=== PATIENT | male | born 1945 | race Caucasian/White ===

== ENCOUNTER → 2017-03-09 | Outpatient (CLI) | payer MEDICARE ==
--- NOTE | 2017-03-09 12:05 | US ---
EXAMINATION TYPE: US abdomen complete DATE OF EXAM: 03/09/2017 11:15 AM COMPARISON: US CLINICAL HISTORY: Inflammatory liver disease, unspecified K75.9. Elevated LFT's EXAM MEASUREMENTS: Liver Length: 15.6 cm Gallbladder Wall: 0.3 cm CBD: 0.6 cm Spleen: 10.8 cm Right Kidney: 9.9 x 5.3 x 5.9 cm Left Kidney: 10.6 x 5.9 x 5.2 cm Pancreas: obscured by overlying midline bowel gas Liver: slightly course echogenicity, scanned intercostally, limited by rib shadowing Gallbladder: appears hydropic measuring 5.9cm in transverse, low level echoes within dependent porti on Evidence for sonographic Donato's sign: no CBD: visualized portions wnl, limited by overlying bowel gas Spleen: visualized portions wnl, limited by rib shadowing and overlying bowel gas Right Kidney: wnl Left Kidney: visualized portions wnl, limited by rib shadowing and overlying bowel gas Upper IVC: wnl Abd Aorta: visualized portions wnl, proximal portion obscured by overlying midline gas IMPRESSION: 1. Exam is limited due to bowel gas and inability scan due to patient body habitus. 2. No suspicious acute changes. 3. Some mild debris may be within the gallbladder.
== END | disposition home or self-care (01) ==
LOC: RADUSWWP 10:30
PROVIDERS: ATTEND Family Medicine
DX: K75.9 Inflammatory liver disease, unspecified (principal)
CPT/HCPCS: 76700

== ENCOUNTER → 2017-03-13 | Outpatient (CLI) | payer MEDICARE ==
[2017-03-13 09:44] LABS: Anion Gap 8 mmol/L; Blood Urea Nitrogen 15 mg/dL (9-20); Calcium 8.5 mg/dL (8.4-10.2); Carbon Dioxide 22 mmol/L (22-30); Chloride 107 mmol/L (98-107); Glucose 112 mg/dL (74-99); Magnesium 1.9 mg/dL (1.6-2.3); Non-African American GFR(MDRD) >60 (>60 ml/min/1.73 sqM); Potassium 4.7 mmol/L (3.5-5.1); Sodium 137 mmol/L (137-145)
== END | disposition home or self-care (01) ==
LOC: LABWHC1 08:28
PROVIDERS: ATTEND Internal Medicine Clinical Cardiac Electrophysiology
DX: I48.1 Persistent atrial fibrillation (principal)
CPT/HCPCS: 36415; 80048; 83735

== ENCOUNTER 2022-06-28 08:34 | Inpatient (IN) | payer MEDICARE ==
[~2022-06-28 08:34] MED LIST: ALPRAZolam 0.25 MG TAB PO PRN; ALPRAZolam 0.5 MG TAB PO PRN; ASPIRIN 325 MG TAB PO STA; ATORVASTATIN 80 MG TAB PO STA; HEPARIN SODIUM,PORCINE 10,000 UNIT in SODIUM CHLORIDE 0.9% 1,000 ML IRRIGATION PRN; HEPARIN SODIUM,PORCINE 2,500 UNIT in SODIUM CHLORIDE 0.9% 250 ML IRRIGATION PRN; NITROGLYCERIN SL TABS 0.4 MG TAB SUBLINGUAL PRN
[2022-06-28] MEDS: SODIUM CHLORIDE 0.9% 1,000 ML in EMPTY BAG 1 BAG IV SCH ×3 (09:40→16:09)
[2022-06-28 10:17] LABS: Basophils # (A) 0.1 k/uL (0-0.2); Basophils % (A) 1 %; Eosinophils # (A) 0.2 k/uL (0-0.7); Eosinophils % (A) 2 %; HCT 48.1 % (39.0-53.0); HGB 15.6 gm/dL (13.0-17.5); Lymphocytes # (A) 2.8 k/uL (1.0-4.8); Lymphocytes % (A) 27 %; MCH 30.6 pg (25.0-35.0); MCHC 32.4 g/dL (31.0-37.0); MCV 94.3 fL (80.0-100.0); Monocytes # (A) 0.9 k/uL (0-1.0); Monocytes % (A) 9 %; Neutrophils # (A) 6.2 k/uL (1.3-7.7); Neutrophils % (A) 60 %; Platelet Count 210 k/uL (150-450); RDW 13.6 % (11.5-15.5); WBC 10.3 k/uL (3.8-10.6)
[2022-06-28 10:29] LABS: INR 2.9 (<1.2); Prothrombin Time 28.8 sec (9.0-12.0)
[2022-06-28 10:30] LABS: Calcium 9.3 mg/dL (8.4-10.2)
[2022-06-28] MEDS ORDERED: MIDAZOLAM 2 MG/2 ML VIAL IVP ONE (10:46)
[2022-06-28] MEDS ORDERED: LIDOCAINE 1% INJ 10MG/ML (30 ML VIAL-PF) SQ ONE ×4 (10:51→15:11)
[2022-06-28] MEDS ORDERED: VERAPAMIL SYRINGE (5 MG/10 ML) INTRAARTER ONE (10:55)
[2022-06-28] MEDS ORDERED: PHYTONADIONE 2.5 MG in SODIUM CHLORIDE 0.9% 50 ML IVPB STA (11:00)
[2022-06-28] MEDS ORDERED: HEPARIN SODIUM 1,000 UN/ML (10ML VL) IVP ONE (11:11)
[2022-06-28] MEDS ORDERED: IOPAMIDOL-370 100ML BTL INJ ONE ×3 (11:25→15:52)
[2022-06-28] MEDS ORDERED: HYDROmorphone 0.5 MG/0.5 ML SYRINGE IVP ONE ×3 (11:33→15:08)
[2022-06-28] MEDS ORDERED: IOPAMIDOL-370 125ML BTL INJ ONE ×2 (11:51→12:02)
[2022-06-28] MEDS ORDERED: CLOPIDOGREL 75 MG TAB PO ONE (11:57)
[2022-06-28] MEDS ORDERED: NITROGLYCERIN 1000MCG/10ML SYRINGE INTRACORON ONE ×2 (12:00→15:39)
--- NOTE | 2022-06-28 12:48 | P.CARDCATH ---
Operative Findings: Date of Service 06/28/2022 Cardiac catheterization and PTCA report Indication for procedure this is a 76-year-old gentleman with a known history of chronic persistent atrial fibrillation status post previous ablation. He has known CAD with prior PCI of LAD circumflex and RCA the last one being in 2011. Last From 2014 did not show any significant obstructive disease. Recently is having exertional chest pain and shortness of breath with a positive stress test in the anteroapical reversible defect with a fixed component. He was advised to cardiac cath and brought in for the procedure electively after due discussion regarding risks benefits and options. He was advised to cardiac cath possible PCI. Procedure #1 coronary angiography #2 PTCA and stenting of proximal and mid LAD with 3 drug-eluting stents Performed by: Dr. Simone Molina Moderate conscious sedation time was 85 minutes. Patient was administered Versed and Dilaudid oxygen saturation hemodynamics and EKG were monitored closely Clinical Information 76-year-old gentleman with history of multivessel PCI including LAD circumflex and RCA and also chronic persistent A. fib hypertension hyperlipidemia has been having symptoms of exertional shortness of breath and chest tightness with a positive stress test with a reversible defect in the anteroapical wall with a fixed component. Advised cardiac cath and PTCA after due discussion regarding risks benefits and options. Procedure details: Under strict aseptic precautions and local anesthesia I gained access from the right radial approach using a micropuncture needle technique. Using it 3.5 (4.0 right Marquez catheters I performed coronary angiography. I did not check LV pressures. I noted that RCA was widely patent but there was significant disease in the circumflex and more so in the LAD in the entire proximal and mid segment. The stented area was patent but before and after the stented area sun'aq is disease up to 80%. I performed intervention of the LAD as well with 3 drug-eluting stents with excellent result. Patient on the procedure well without complications. LV pressures are not checked Coronary angiography findings: Right coronary artery: Large dominant vessel stented in the midportion widely patent with good flow bifurcates into PDA and PLV has minor irregularities. No significant disease in the dominant RCA Left main coronary artery: Widely patent left main that bifurcates into LAD and circumflex Left anterior descending coronary artery: This vessel was previously stented in the midportion. Proximally there is a 40% narrowing then in the midsection is 80% narrowing with areas of calcification in between a small diagonal branch comes off just after the lesion. There are several septal branches, which have some disease in them. In the distal portion there is another 50% narrowing and then the caliber improves and the vessel runs distally. This appears to be the culprit lesion with a mean area of narrowing of up to 80% in a heavily calcified segment Circumflex coronary artery: This is a nondominant vessel that gives off a good- sized obtuse marginal. Proximal circumflex is a 50-60% and circumflex of 80% lesion the circumflex marginal had 80% lesion in the continuation of circumflex in the AV groove is somewhat small. The narrowing in the circumflex marginal is located just before the previous stent. The stented segment is patent Recommendations: I advised PCI of LAD and we will stage the circumflex intervention later on explained to the patient the option of surgery but he was insistent on proceeding with percutaneous approach. PCI procedure details: I used XB LAD 3.5 guide catheter and a whisper wire. Predilatation was performed with a 3.0 caliber 15 mm long NC trek balloon. There was a small intrinsic dissection that extended to the diagonal branch and also somewhat proximally. I deployed a 2.75 caliber 15 mm stent after looking with a 3.0 stent I felt it may be oversized. After deployment of the 2.75 caliber 15 mm stent the flow in the LAD was excellent but there was a sluggish flow in the diagonal branch with some chest pain but no EKG changes. I then noted that the proximal LAD prior to the stented segment was also diseased almost up to the ostium. I stented the proximal LAD with 2 stents one was a 3.0 caliber 15 mm Xience and proximal to it at the ostium with a 3.25 caliber 12 mm signs stent. Excellent antegrade result was achieved. Patient's chest pain improved a lot the flow in the diagonal branch was sluggish but was gradually returning. He was hemodynamically stable no EKG changes with significant improvement in chest pain. Details of the procedure were discussed with the patient I also spoke to his friend Ulices by phone and also to the neighbor who brought him here today. Patient will be discharged tomorrow. He received 600 mg of Plavix. Unfortunately INR was 2.9 and therefore I only gave him 2000 units of heparin. We will start him on Eliquis after the PT INR comes down. He will go home on aspirin and Plavix and I will see him this Sunday. Excellent angiographic result was achieved without complication. He will go home on aspirin and Plavix. Coumadin will be held and I will resume Eliquis that I see him in the office. He will also be on digoxin and beta shawn for rate control which has helped him well. He is also so on a was atorvastatin which I will change to Lipitor 80 mg daily. Discussed with the patient and his friend and also neighbor was here. Equipment used Description Result
[2022-06-28] MEDS ORDERED: HYDROmorphone 0.5 MG/0.5 ML SYRINGE IVP PRN ×2 (13:15→16:56)
[2022-06-28] MEDS ORDERED: SODIUM CHLORIDE 0.9% 1,000 ML IV ONE (15:00)
[2022-06-28] MEDS ORDERED: TIROFIBAN BOLUS 12.5MG/250 ML BAG IV ONE (15:16)
[2022-06-28] MEDS ORDERED: TIROFIBAN 12.5MG-250ML NS 250 ML IV ONE (15:17)
[2022-06-28] MEDS ORDERED: HEPARIN SODIUM 1,000 UN/ML (10ML VL) IV ONE (15:21)
[2022-06-28] MEDS ORDERED: niCARdipine Syringe (1,000 mcg/10 mL) INTRACORON ONE (15:32)
[2022-06-28] MEDS: SODIUM CHLORIDE 0.9% 1,000 ML IV SCH (16:10)
[2022-06-28] MEDS ORDERED: TIROFIBAN 12.5MG-250ML NS 250 ML IV SCH (16:15)
[2022-06-28 16:16] LABS: Glucose,Whole Blood 163 mg/dL (70-110)
[2022-06-28] MEDS: MAGNESIUM OXIDE 400 MG TAB PO SCH (16:58)
[2022-06-28] MEDS ORDERED: METOPROLOL TARTRATE 50 MG TAB PO SCH (21:00)
[2022-06-28] MEDS: ONDANSETRON 4 MG/2 ML VIAL IVP PRN (21:57)
[2022-06-29] MEDS: ONDANSETRON 4 MG/2 ML VIAL IVP PRN ×3 (03:01→20:50)
[2022-06-29] MEDS ORDERED: MAG HYDROX/AL HYDROX/SIMETH 30 ML, HYOSCYAMINE ELIXIR 10 ML, LIDOCAINE VISCOUS 2% 10 ML PO ONE ×3 (03:32)
[2022-06-29] MEDS: SODIUM CHLORIDE 0.9% 1,000 ML IV SCH (03:36)
[2022-06-29] MEDS: LEVOTHYROXINE 25 MCG TAB PO SCH (06:02)
[2022-06-29 06:23] LABS: Basophils % (A) 0 %; Eosinophils # (A) 0.1 k/uL (0-0.7); Eosinophils % (A) 0 %; HCT 50.8 % (39.0-53.0); HGB 15.6 gm/dL (13.0-17.5); Lymphocytes # (A) 1.6 k/uL (1.0-4.8); Lymphocytes % (A) 10 %; MCH 29.7 pg (25.0-35.0); MCHC 30.7 g/dL (31.0-37.0); MCV 96.6 fL (80.0-100.0); Mean Platelet Volume 8.5; Monocytes # (A) 1.3 k/uL (0-1.0); Monocytes % (A) 8 %; Neutrophils # (A) 13.3 k/uL (1.3-7.7); Neutrophils % (A) 81 %; Platelet Count 244 k/uL (150-450); RBC 5.25 m/uL (4.30-5.90); RDW 13.7 % (11.5-15.5); WBC 16.4 k/uL (3.8-10.6)
[2022-06-29 06:43] LABS: African American GFR (CKD) >90 (>60 ml/min/1.73 sqM); Anion Gap 13 mmol/L; Blood Urea Nitrogen 22 mg/dL (9-20); Calcium 8.1 mg/dL (8.4-10.2); Carbon Dioxide 20 mmol/L (22-30); Chloride 100 mmol/L (98-107); Glucose 158 mg/dL (74-99); Non-African American GFR(CKD) 82 (>60 ml/min/1.73 sqM); Sodium 133 mmol/L (137-145)
[2022-06-29 06:44] LABS: Potassium 5.6 mmol/L (3.5-5.1)
[2022-06-29] MEDS ORDERED: METOCLOPRAMIDE 5 MG/ML 2 ML VIAL IVP STA (06:51)
--- NOTE | 2022-06-29 07:17 | P.CARDCATH ---
Operative Findings: Clinical Information: This is a 76-year-old gentleman with persistent A. fib hypertension hyperlipidemia CAD with prior multivessel PCI. I performed PTCA and stenting of proximal LAD earlier in the day. Patient had a mild dissection when I initially dilated with a balloon and then this was tacked up with 3 stents and he was sent to the room. Subsequently he developed sudden chest pain with anterior ST elevation was brought back to the microbiological laboratory technician for urgent cardiac catheter with the thought that he may have had some abrupt reclosure of the vessel LAD and on any acute in-stent thrombosis. Patient's INR was 2.9, I therefore gave him only a small dose of intravenous heparin with ACT of 175 and 600 mg of Plavix. Patient was brought to the Network Programmer expeditiously for the procedure. I advised to cardiac cath and possible PCI of LAD. Procedure: Urgent PCI of mid LAD which was totally occluded performed in the setting of ST elevation with a acute abrupt reclosure following PCI about 2-3 hours ago. Date of service: 06/28/2022 Moderate conscious sedation time: Patient was administered Versed and Dilaudid. His moderate conscious sedation time was 34 minutes. Oxygen saturation hemodynamics and EKG were monitored closely. Guide Catheter: STD left BETHANIE 6 fr [Procedure note: Under strict aseptic precautions and local anesthesia a 6- Faroese introducerin the right femoral artery. I used a long sheath because of tortuosity. A standard left Bethanie guide catheter of 6-Faroese caliber was used to cannulate the left coronary artery. Initial injection revealed in the vessel was totally occluded at the site of the second stent. I gave 5000 units of heparin and also started him on Aggrastat drip. I used a run through wire to cross the lesion and dilated the total occlusion with a 3.0 caliber 15 mm long trek balloon. I noted that there was a area of stenosis just beyond the distal stent. I therefore deployed in the additional new 2.75 caliber 15 mm long Xience stent telescoping to the distal stent. This improved his symptoms remarkably however he still had ST elevation in the anterior leads. I then used a 3.0 NC trek balloon and dilated the entire stented segment at 12-13's. Excellent angiography result was achieved. There was a diagonal branch that came off which had a sluggish flow when I finished the cardiac cath and PCI earlier in the day and this vessel was now totally occluded suggesting he may have an MT in the diagonal distribution. Patient was hemodynamically stable ch est pain free with persistent anterior ST elevation. He was sent to the ICU in a stable condition with the sheath sutured in and TR band in place. He will be on dual antiplatelet therapy with aspirin and Plavix uninterrupted for the next 12 months. Wire: Run through wire Balloon: Initially a 3.0 x 15 trek balloon and subsequently a 3.0 x 15 NC trek balloon Stent: 2.75 caliber with 12 mm long Xience stent Recommendations: Advised dual antiplatelet therapy aspirin and Plavix for one year unless some contraindication develops down the road. Discussed with patient and son Gurmeet( by phone) regarding initial PCI, abrupt reclosure and details of the procedure and recommendations.
--- NOTE | 2022-06-29 07:26 | P.PCN ---
Operative Findings: HPI: This patient underwent elective PCI of proximal LAD yesterday in the morning around 10:30, he had significant disease in the LAD and obtuse minor branch of circumflex but LAD was area where there was ischemia on the stress test. I performed stenting of this vessel with the dissection that required an additional stent. Around 2:30 PM he developed chest pain with ST elevation in the anterior leads and I took him back to the crime lab analyst and LAD was 100% occluded, additional stent was placed in the entire area was dilated with a 3.0 NC trek balloon. Post procedure course from this standpoint was uneventful. His sheath has been pulled his right groin is clean and dry. His right radial site is clean and dry with a good pulse. He developed nausea throughout the night requiring Zofran. This morning is hemodynamically stable. His EKG reveals atrial fib controlled rate with a QS pattern no ST elevation. The ST segment elevation has resolved completely. His hemoglobin is normal but actually slightly high but the sample was hemolyzed of renal function is normal. I am recommending that we will place him on KVO IV fluids check a PT/INR troponin level obtain echocardiogram today and increase activity have him sit in a chair and drink some Vernors and one-time dose of Reglan 5 mg for his nausea. I discussed this at length with the patient and explained to him the details of what happened yesterday. He is hard of hearing but he has acknowledged hearing and understanding everything ice explained.. PHYSICIAL EXAM: Vital signs stable no JVD S1-S2 with a short systolic murmur at the base irregularity and rhythm noted lungs are clear no rales or rhonchi abdomen is soft right groin area is clean and dry with a palpable pulses. Trace edema bilaterally. Central nervous system is normal. IMPRESSION: 1. 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 . 2. Chronic persistent atrial fibrillation. 3. Benign hypertension. 4. Hypercholesterolemia. 5. . RECOMMENDATIONS: Place him on KVO IV fluids, and echocardiogram, check a p ercussion level repeat study in view of earlier hemolytic blood draw, troponin level and a PT/INR. He will be up in the chair and gradual increase in activity. Discussed my thoughts in detail with the patient.
--- NOTE | 2022-06-29 07:29 | P.PN ---
Progress Note - Text HPI: []. HPI: This patient underwent elective PCI of proximal LAD yesterday in the morning around 10:30, he had significant disease in the LAD and obtuse minor branch of circumflex but LAD was area where there was ischemia on the stress test. I performed stenting of this vessel with the dissection that required an additional stent. Around 2:30 PM he developed chest pain with ST elevation in the anterior leads and I took him back to the experimental machining lab manager and LAD was 100% occluded, additional stent was placed in the entire area was dilated with a 3.0 NC trek balloon. Post procedure course from this standpoint was uneventful. His sheath has been pulled his right groin is clean and dry. His right radial site is clean and dry with a good pulse. He developed nausea throughout the night requiring Zofran. This morning is hemodynamically stable. His EKG reveals atrial fib controlled rate with a QS pattern no ST elevation. The ST segment elevation has resolved completely. His hemoglobin is normal but actually slightly high but the sample was hemolyzed of renal function is normal. I am recommending that we will place him on KVO IV fluids check a PT/INR troponin level obtain echocardiogram today and increase activity have him sit in a chair and drink some Vernors and one-time dose of Reglan 5 mg for his nausea. I discussed this at length with the patient and explained to him the details of what happened yesterday. He is hard of hearing but he has acknowledged hearing and understanding everything ice explained.. PHYSICIAL EXAM: Vital signs stable no JVD S1-S2 with a short systolic murmur at the base irregularity and rhythm noted lungs are clear no rales or rhonchi abdomen is soft right groin area is clean and dry with a palpable pulses. Trace edema bilaterally. Central nervous system is normal. IMPRESSION: 1. [ Periprocedural ID following abrupt reclosure after initial PCI of LAD underwent subsequent PCI with additional stented doing well. . 2. Chronic persistent atrial fibrillation. 3. Benign hypertension. 4. Hypercholesterolemia. 5. . RECOMMENDATIONS: Place him on KVO IV fluids, and echocardiogram, check a percussion level repeat study in view of earlier hemolytic blood draw, troponin level and a PT/INR. He will be up in the chair and gradual increase in activity. Discussed my thoughts in detail with the patient.
[2022-06-29 08:04] LABS: INR 1.2 (<1.2); Prothrombin Time 12.7 sec (9.0-12.0)
[2022-06-29] MEDS: CLOPIDOGREL 75 MG TAB PO SCH (08:32)
[2022-06-29] MEDS: allopurinoL 100 MG TAB PO SCH (08:33)
[2022-06-29] MEDS: SODIUM CHLORIDE 0.9% 500 ML 500 ML IV SCH (08:33)
[2022-06-29] MEDS ORDERED: DIGOXIN 125 MCG TAB PO SCH (09:00)
[2022-06-29] MEDS ORDERED: METOPROLOL TARTRATE 50 MG TAB PO SCH (09:00)
[2022-06-29] MEDS ORDERED: ASPIRIN 81 MG PO SCH (09:00)
--- NOTE | 2022-06-29 10:44 | CA ---
Transthoracic Echo Report Name: Shawn Watkins Age: 76 Gender: M : 1945 Exam Date: 06/29/2022 07:55 Exam Location: [place] [facility] Ht (in): 68 Wt (lb): 220 Ordering Physician: Ashely Molina MD ([id number]) Attending/Referring Phys: Edge Trimmer Mechanic Sue Gregorio RDCS Procedure CPT: Indications: LV function and wall motion Cardiac Hx: Technical Quality: Fair Contrast 1: Lumason Total Dose (mL): 4 Contrast 2: Total Dose (mL): MEASUREMENTS (Male / Female) Normal Values 2D ECHO LV Diastolic Diameter PLAX 4.5 cm 4.2 - 5.9 / 3.9 - 5.3 cm LV Systolic Diameter PLAX 3.7 cm IVS Diastolic Thickness 1.2 cm 0.6 - 1.0 / 0.6 - 0.9 cm LVPW Diastolic Thickness 1.3 cm 0.6 - 1.0 / 0.6 - 0.9 cm LV Relative Wall Thickness 0.6 RV Internal Dim ED PLAX 3.2 cm LVOT Diameter 2.0 cm LA Systolic Diameter LX 3.2 cm 3.0 - 4.0 / 2.7 - 3.8 cm LA Volume 57.0 cm??? 18 - 58 / 22 - 52 cm??? M-MODE Aortic Root Diameter MM 3.6 cm MV E Point Septal Separation 1.8 cm AV Cusp Separation MM 1.7 cm DOPPLER AV Peak Velocity 228.1 cm/s AV Peak Gradient 20.8 mmHg AV Mean Velocity 149.8 cm/s AV Mean Gradient 10.6 mmHg AV Velocity Time Integral 42.5 cm MV Area PHT 4.6 cm??? MV Deceleration Time 204.3 ms TR Peak Velocity 206.9 cm/s TR Peak Gradient 17.1 mmHg Right Ventricular Systolic Press 22.1 mmHg FINDINGS Left Ventricle Left ventricular ejection fraction is estimated at 25-30 %. Left ventricular cavity size normal. Mildly increased septal wall thickness. Apical septum inferior and anterior lee hypokinesis Right Ventricle Normal right ventricular size and function. Right ventricular systolic pressure within normal limits. Right Atrium Normal right atrial size. Left Atrium Normal left atrial size. No evidence for an atrial septal defect. Mitral Valve Mitral valve thickened. Trace to mild mitral regurgitation. Aortic Valve Focal thickening of the aortic valve cusps. Mild aortic stenosis with a peak gradient of 21 mmHg and a mean gradient of 11 mmHg. Tricuspid Valve Mild tricuspid regurgitation. Pulmonic Valve Trace pulmonic regurgitation. Pericardium Normal pericardium. No pericardial effusion. Aorta Normal size aortic root and proximal ascending aorta. CONCLUSIONS Left ventricle is of normal size with mild concentric LVH with severe hypokinesia involving the anteroapical septal and also inferoapical portion of the left ventricle suggestive ischemic cardiomyopathy but in the current clinical setting may have significant stunning as well. Mild aortic sclerosis without significant gradient no pulmonary hypertension. No pericardial effusion Previewed by: Dr. Ashely Molina MD (Electronically Signed) Final Date: 29 June 2022 10:43
[2022-06-29] MEDS ORDERED: FUROSEMIDE 10 MG/ML 2 ML VIAL IV STA ×2 (10:53→20:24)
[2022-06-29] MEDS: METOPROLOL TARTRATE 50 MG TAB PO SCH (18:18)
[2022-06-29] MEDS ORDERED: FUROSEMIDE 10 MG/ML 4 ML VIAL ONE (20:14)
[2022-06-29] MEDS ORDERED: IPRATROPIUM-ALBUTEROL 3 ML NEB INHALATION PRN (20:23)
[2022-06-29 20:33] LABS: ABG Base Excess 2.1 mmol/L; ABG HCO3 27 mmol/L (21-25); ABG Hematocrit 51 % (34.0-46.0); ABG Oxygen Saturation 90.1 % (94-97); ABG PCO2 40 mmHg (35-45); ABG PH 7.43 (7.35-7.45); ABG TCO2 28 mmol/L (19-24); Allen Test Performed? Yes
[2022-06-29 20:36] LABS: ABG PO2 59 mmHg (83-108)
[2022-06-29] MEDS ORDERED: HEPARIN SODIUM,PORCINE/PF 5,000 UNIT/0.5 ML SYRINGE SQ SCH (21:00)
--- NOTE | 2022-06-29 22:11 | XR ---
EXAMINATION TYPE: XR chest 1V portable DATE OF EXAM: 06/29/2022 COMPARISON: None HISTORY: Short of breath TECHNIQUE: FINDINGS: There is pulmonary airspace edema in the left upper lobe. There is mild edema also in the r ight perihilar region. Costophrenic angles are clear. IMPRESSION: There is some bilateral perihilar pulmonary edema that is worse in the left upper lobe. This could be acute pneumonia or acute heart failure.
[2022-06-29] MEDS: COLCHICINE 0.6 MG EACH PO SCH (22:54)
[2022-06-29] MEDS: LOSARTAN 25 MG TAB PO SCH (22:55)
[2022-06-29] MEDS: APIXABAN 5 MG TAB PO SCH (23:21)
--- NOTE | 2022-06-30 00:01 | P.HPIM ---
History of Present Illness H&P Date: 06/29/22 Chief Complaint: Chest pain Patient is a 76-year-old male with a known history of persistent atrial fibrillation on anticoagulation with Coumadin and prior history of ablation, history of stent placement and 2012, hypertension, hyperlipidemia, history of IL, hypothyroidism and previous history of smoking initially was brought to the hospital for elective cardiac catheterization. Patient has been having exertional positive stress test with a fixed component. Patient underwent elective PCI of proximal LAD at around 10:30 AM. Patient developed chest pain with ST elevation in the anterior leads started around 2:30 PM and patient was emergently taken to cardiac catheterization and was found to have 100% occlusion of the LAD status post stent placement again. Patient was admitted to MICU for further monitoring. Patient is currently remains in atrial fibrillation with elevated heart rate around 115. Denies any complaints of chest pain. No shortness breath. Compl ains of dizziness and lightheaded. No cough or sputum production. No fever no chills. Laboratory test showed WBC 16.4 hemoglobin 14.6 and platelets 244 Sodium 133 potassium 5.6 chloride 100 bicarb is 20 BUN 2020 creatinine 0.9 and troponin 137 and 120 and 79. Echocardiogram showed concentric mild left ventricular hypertrophy with severe hypokinesia involving the anteroseptal and inferolateral apical portion of the left ventricle suggestive ischemic cardiomyopathy and may have significant myoca rdial stunning as well. Patient currently on room air saturating at 92%. Review of Systems Constitutional: Patient denies any fever or chills . no Generalized weakness. Abdomen: Patient denied any nausea or vomiting or abd. pain Cardiovascular: Patient denies any chest pain or short of breath no palpitations. Dizziness and lightheaded. Respiratory: patient denied any cough is from production. No shortness of breath Neurologic: Patient denied any numbness or tingling headache. Musculoskeletal: Patient denies any complaints of joint swelling or deformity. Skin: Negative Psychiatric: Negative Endocrine: No heat or cold intolerance. No recent weight gain. Genitourinary: No dysuria or hematuria. All other 14 point ROS negative except the above Past Medical History Past Medical History: Atrial Fibrillation, Coronary Artery Disease (CAD), Chest Pain / Angina, Heart Failure, GERD/Reflux, Hyperlipidemia, Hypertension, Sam cardial Infarction (non Q-wave), Osteoarthritis (OA), Pneumonia, Thyroid Disorder Additional Past Medical History / Comment(s): 10/04/15 Pt presented to [facility] ER with L sided chest pain and jaw pain which awoke him from sleep. He was also SOB and diaphoretic. He is being admitted with clinical impression of AFib, chest pain and leukocytosis. Other HX: CHF-chronic systolic dysfunction, nonsustained VTach, dilated ascending aorta 37mm, hypothyroidism, chronic GOUT, DIVERTICULOSIS, DUODENAL ULCER 1978, ARTHTITIS, DJD, psoriasis, tinnitis, sinus problems. Last Myocardial Infarction Date:: 2004 History of Any Multi-Drug Resistant Organisms: None Reported Past Surgical History: Ablation, Appendectomy, Heart Catheterization, Heart Catheterization With Stent (4 with stents placed 2 vessels 2004 one-vessel 2005 and one-vessel 2011), Hernia Repair, Orthopedic Surgery, Tonsillectomy Additional Past Surgical History / Comment(s): STENT X4 per pt with last stent placed 2011, STATES CARDIOVERSION X4 -last one 02/09/15, last ccath 12/2014, 12/22/14 cardiac ablation, LT KNEE BURSA REMOVED, LT KNEE ARTHROSCOPY in and , VASECTOMY, HEAD INJURY- RECONSTRUCTIVE EAR SX 1977, R ear scapiotomy 2005, R inguinal hernia repair. Past Anesthesia/Blood Transfusion Reactions: No Reported Reaction Additional Past Anesthesia/Blood Transfusion Reaction / Comment(s): Pt has never received blood. Date of Last Stent Placement:: 2011 Smoking Status: Former smoker - Past Family History Father Family Medical History: Myocardial Infarction (IL) Additional Family Medical History / Comment(s): Father after his 3rd IL at age 59yrs. Mother Family Medical History: No Reported History, Myocardial Infarction (IL) (At age 77) Additional Family Medical History / Comment(s): Mother of an IL at age 77 yrs. Sister(s) Family Medical History: No Reported History Medications and Allergies Home Medications Medication Instructions Recorded Confirmed Type Aspirin 81 mg PO DAILY 12/18/14 06/28/22 History Digoxin [Lanoxin] 125 mcg PO DAILY 12/18/14 06/28/22 History Levothyroxine Sodium [Synthroid] 25 mcg PO DAILY 12/18/14 06/28/22 History Spironolactone 25 mg PO DAILY 12/18/14 06/28/22 History allopurinoL [Allopurinol] 100 mg PO DAILY 12/18/14 06/28/22 History Warfarin Sodium [Coumadin] 5 mg PO DIRECTED 02/04/15 06/28/22 History Magnesium 250 mg PO MOWEFR 10/04/15 06/28/22 History Metoprolol Tartrate [Lopressor] 100 mg PO DAILY 10/04/15 06/28/22 History Meloxicam [Mobic] 7.5 mg PO BID PRN 06/28/22 06/28/22 History Metoprolol Tartrate [Lopressor] 50 mg PO HS 06/28/22 06/28/22 History Rosuvastatin Calcium [Crestor] 5 mg PO HS 06/28/22 06/28/22 History Allergies Allergy/AdvReac Type Severity Reaction Status Date / Time erythromycin base AdvReac Diarrhea Verified 10/04/15 06:14 Physical Exam Vitals: Vital Signs Temp Pulse Resp BP Pulse Ox 06/29/22 15:00 92 28 H 108/74 91 L 06/29/22 14:00 110 H 24 94/63 90 L 06/29/22 13:00 102 H 36 H 104/71 93 L 06/29/22 12:00 98.9 F 103 H 25 H 92/61 94 L 06/29/22 11:00 85 34 H 83/51 92 L 06/29/22 10:00 109 H 20 118/76 93 L 06/29/22 09:00 115 H 26 H 104/60 91 L 06/29/22 08:00 98.3 F 98 23 108/69 94 L 06/29/22 07:00 128 H 35 H 105/77 95 06/29/22 06:45 106 H 27 H 105/77 87 L 06/29/22 06:30 101 H 7 L 116/72 94 L 06/29/22 06:15 97 11 L 116/72 94 L 06/29/22 06:00 98 10 L 102/62 95 06/29/22 05:45 90 24 102/62 96 06/29/22 05:30 101 H 29 H 105/68 97 06/29/22 05:15 103 H 21 96 06/29/22 05:00 93 21 107/68 94 L 06/29/22 04:45 100 19 107/68 94 L 06/29/22 04:30 104 H 22 106/80 96 06/29/22 04:15 112 H 7 L 106/80 88 L 06/29/22 04:00 97.8 F 110 H 20 105/67 96 06/29/22 03:45 108 H 26 H 105/67 91 L 06/29/22 03:30 93 19 106/91 87 L 06/29/22 03:15 101 H 13 92 L 06/29/22 03:00 98 16 104/65 96 06/29/22 02:45 90 17 104/65 97 06/29/22 02:30 89 20 100/75 95 06/29/22 02:15 92 9 L 100/75 96 06/29/22 02:00 80 6 L 108/58 96 06/29/22 01:45 84 20 108/58 95 06/29/22 01:30 97 16 96 06/29/22 01:15 90 17 96 06/29/22 01:00 90 20 97 06/29/22 00:45 107 H 19 110/63 96 06/29/22 00:30 103 H 18 96 06/29/22 00:15 88 16 106/72 96 06/29/22 00:00 98.1 F 104 H 16 117/54 96 06/28/22 23:45 97 18 96 06/28/22 23:30 95 15 122/78 96 06/28/22 23:15 115 H 9 L 91/51 95 06/28/22 23:00 96 17 101/62 97 06/28/22 22:45 107 H 16 101/62 97 06/28/22 22:30 109 H 15 104/60 96 06/28/22 22:15 101 H 15 104/60 96 06/28/22 22:00 86 26 H 102/76 96 06/28/22 21:45 90 10 L 95/72 96 06/28/22 21:30 91 7 L 95 06/28/22 21:15 102 H 19 107/74 95 06/28/22 21:00 90 15 95 06/28/22 20:45 90 17 97 06/28/22 20:30 103 H 18 120/87 96 06/28/22 20:15 103 H 23 95 06/28/22 20:00 97.7 F 102 H 10 L 120/87 97 06/28/22 19:45 89 9 L 120/87 96 06/28/22 19:30 93 10 L 96 06/28/22 19:15 96 18 120/87 96 06/28/22 19:06 96 11 L 120/87 95 06/28/22 19:00 101 H 16 94 L 06/28/22 18:45 114 H 14 95 06/28/22 18:30 95 16 95 06/28/22 18:15 93 19 95 06/28/22 18:00 105 H 15 96 06/28/22 17:45 89 19 95 06/28/22 17:30 111 H 20 94 L 06/28/22 17:15 104 H 20 93 L 06/28/22 17:00 98 17 92 L 06/28/22 16:45 103 H 22 92 L 06/28/22 16:30 104 H 23 120/87 90 L 06/28/22 16:15 97.9 F 99 19 117/84 90 L Intake and Output 06/29/22 06/29/22 06/29/22 06:59 14:59 22:59 Intake Total 597 160 0 Output Total 375 650 Balance 222 -490 0 Intake: IV 597 160 0 KVO 160 0 Sodium Chloride 0.9% 1, 525 000 ml @ 75 mls/hr IV . [id number] MYESHA Rx#:[id number] Tirofiban 12.5MG-250Ml Ns 72 250 ml @ 0.15 MCG/KG/MIN 18.036 mls/hr IV . [id number] MYESHA Rx#:[id number] Output: Urine 375 650 Other: Voiding Method Urinal Urinal # Voids 0 # Bowel Movements 0 0 Weight 100 kg PHYSICAL EXAMINATION: Patient is lying in the bed comfortably, no acute distress, awake alert and oriented.. HEENT: Normocephalic. Neck is supple. Pupils reactive. Nostrils clear. Oral cavity is moist. Neck reveals no JVD, carotid bruits, or thyromegaly. CHEST EXAMINATION: Trachea is central. Symmetrical expansion. Bibasilar diminished sounds. No wheezing.. CARDIAC: Normal S1, S2 with no gallops. No murmurs. Irregularly irregular rhythm. ABDOMEN: Soft. Bowel sounds present. Nontender. No organomegaly. No abdominal bruits. Extremities: reveal no edema. No clubbing or cyanosis Neurologically awake, alert, oriented x3 with well-coordinated movements. No focal deficits noted Skin: No rash or skin lesions. Psychiatric: Coperative. Nonsuicidal, Musculoskeletal: No joint swelling or deformity. Normal range of motion. Results CBC & Chem 7: 06/29/22 05:28 06/29/22 10:03 Labs: Abnormal Lab Results - Last 24 Hours (Table) 06/28/22 06/29/22 06/29/22 Range/Units 16:15 05:28 05:28 WBC 16.4 H (3.8-10.6) k/uL MCHC 30.7 L (31.0-37.0) g/dL Neutrophils # 13.3 H (1.3-7.7) k/uL Monocytes # 1.3 H (0-1.0) k/uL PT (9.0-12.0) sec INR (<1.2) Sodium 133 L (137-145) mmol/L Potassium 5.6 H (3.5-5.1) mmol/L Carbon Dioxide 20 L (22-30) mmol/L BUN 22 H (9-20) mg/dL Glucose 158 H (74-99) mg/dL POC Glucose (mg/dL) 163 H (70-110) mg/dL Calcium 8.1 L (8.4-10.2) mg/dL Troponin I (0.000-0.034) ng/mL 06/29/22 06/29/22 06/29/22 Range/Units 07:16 07:16 10:03 WBC (3.8-10.6) k/uL MCHC (31.0-37.0) g/dL Neutrophils # (1.3-7.7) k/uL Monocytes # (0-1.0) k/uL PT 12.7 H (9.0-12.0) sec INR 1.2 H (<1.2) Sodium (137-145) mmol/L Potassium (3.5-5.1) mmol/L Carbon Dioxide (22-30) mmol/L BUN (9-20) mg/dL Glucose (74-99) mg/dL POC Glucose (mg/dL) (70-110) mg/dL Calcium (8.4-10.2) mg/dL Troponin I 137.000 H* 120.000 H* (0.000-0.034) ng/mL Thrombosis Risk Factor Assmnt - DVT/VTE Prophylaxis DVT/VTE Prophylaxis: Pharmacologic Prophylaxis ordered - Choose All That Apply Each Factor Represents 1 point: Medical pt on bed rest Each Risk Factor Represents 3 Points: Age 75 years or older Thrombosis Risk Factor Assessment Total Risk Factor Score: 4 Thrombosis Risk Factor Assessment Level: Moderate Risk Assessment and Plan Assessment: Periprocedural IL following abrupt reclosure after initially PCI of LAD and underwent subsequent PCI with additional stenting. Chronic persistent atrial fibrillation with RVR. History of cardiac catheterization and stent placement in 2004, 2005 and 2011. Hypertension Hyperlipidemia History IL GERD Hypothyroidism GI and DVT prophylaxis. Patient is on apixaban. Plan: Patient will be current on telemetry monitoring. Continue with Plavix and Eliquis and continue with metoprolol and other home medications. monitor the patient in the MICU. Cardiology is on board. Continue to follow closely. Time with Patient: Greater than 30
[2022-06-30] MEDS ORDERED: FUROSEMIDE 10 MG/ML 2 ML VIAL IV ONE (05:00)
[2022-06-30] MEDS: METOPROLOL TARTRATE 50 MG TAB PO SCH ×2 (05:36→06:03)
[2022-06-30] MEDS: LEVOTHYROXINE 25 MCG TAB PO SCH (05:36)
[2022-06-30 07:01] LABS: Basophils # (A) 0.1 k/uL (0-0.2); Basophils % (A) 1 %; Calcium 8.3 mg/dL (8.4-10.2); Eosinophils % (A) 0 %; HCT 46.9 % (39.0-53.0); HGB 15.4 gm/dL (13.0-17.5); Lymphocytes # (A) 1.8 k/uL (1.0-4.8); Lymphocytes % (A) 9 %; MCH 30.8 pg (25.0-35.0); MCHC 32.8 g/dL (31.0-37.0); Mean Platelet Volume 8.7; Monocytes % (A) 10 %; Neutrophils # (A) 15.3 k/uL (1.3-7.7); Neutrophils % (A) 79 %; Platelet Count 149 k/uL (150-450); Potassium 4.4 mmol/L (3.5-5.1); RBC 4.99 m/uL (4.30-5.90); RDW 13.7 % (11.5-15.5); WBC 19.5 k/uL (3.8-10.6)
[2022-06-30] MEDS ORDERED: FUROSEMIDE 10 MG/ML 4 ML VIAL IV STA (08:02)
[2022-06-30] MEDS: SODIUM CHLORIDE 0.9% 500 ML 500 ML IV SCH (08:12)
[2022-06-30] MEDS: SPIRONOLACTONE 25 MG TAB PO SCH (08:22)
[2022-06-30] MEDS: CLOPIDOGREL 75 MG TAB PO SCH (08:22)
[2022-06-30] MEDS: COLCHICINE 0.6 MG EACH PO SCH (08:22)
[2022-06-30] MEDS: APIXABAN 5 MG TAB PO SCH ×2 (08:22→20:45)
[2022-06-30] MEDS: allopurinoL 100 MG TAB PO SCH (08:22)
--- NOTE | 2022-06-30 08:24 | XR ---
EXAMINATION TYPE: XR chest 1V portable DATE OF EXAM: 06/30/2022 COMPARISON: 06/29/2022 HISTORY: Shortness of breath TECHNIQUE: Single frontal view of the chest is obtained. FINDINGS: Patchy bilateral perihilar infiltrate. Tiny right pleural effusion. Heart size stable. Hyp ertrophic and degenerative changes spine. No pneumothorax. IMPRESSION: Bilateral areas of patchy infiltrate correlate for pneumonia or atypical pneumonia. Pulm onary edema also the differential diagnosis.
[2022-06-30] MEDS ORDERED: FUROSEMIDE 10 MG/ML 2 ML VIAL IV SCH ×2 (09:30→09:45)
[2022-06-30] MEDS ORDERED: AMIODARONE 200 MG TAB PO SCH (12:04)
--- NOTE | 2022-06-30 12:25 | P.PN ---
Subjective Progress Note Date: 06/30/22 Patient seen today resting comfortably in bed no signs of acute distress. He denies chest pain or increased shortness of breath but states he felt better. Patient has A. fib RVR on the monitor he has a history of A. fib and continues on Eliquis. Heart rate is 120s to 150s. Will start amiodarone. Last night patient had an episode of respiratory distress, his chest x-ray showed bilateral pulmonary edema worsened in the left upper lobe correlated for acute pneumonia or acute heart failure. Patient has received a total of the 100mg of IV Lasix between last night and today. BUN is 25 creatinine is 1. Chest x-ray still correlates for with bilateral patchy infiltrates. Will continue with IV Lasix. Patient's echocardiogram shows a severely decreased LV function with an EF of 25-30%. Patient is on 10 L nasal cannula Objective - Vital Signs Vital signs: Vital Signs Temp 98.5 F 06/30/22 08:00 Pulse 137 H 06/30/22 09:20 Resp 32 H 06/30/22 09:20 BP 102/69 06/30/22 09:20 Pulse Ox 93 L 06/30/22 09:20 FiO2 Intake & Output 06/29/22 06/30/22 06/30/22 18:59 06:59 18:59 Intake Total 460 50 Output Total 1000 680 700 Balance -540 -630 -700 Weight 35.2 kg Intake: IV 160 0 KVO 160 0 Oral 300 50 Output: Urine 1000 680 700 Other: Voiding Method Urinal Urinal Urinal # Bowel Movements 0 ABP, PAP, CO, CI - Last Documented Arterial Blood Pressure 259/259 - Exam PHYSICAL EXAM: VITAL SIGNS: Reviewed. GENERAL: Well-developed in no acute distress. HEENT: Head is normocephalic. Pupils are equal, round. Sclerae anicteric. Mucous membranes of the mouth are moist. NECK: Supple. No JVD or thyromegaly RESPIRATORY: Respirations even and unlabored. Lungs diminished to auscultation bilaterally. CARDIO: Regular rate and rhythm. S1 and S2 heard. No murmur or gallops. EXTREMITIES: Normal range of motion. No clubbing or cyanosis. Peripheral pulses intact. Negative for bilateral lower extremity edema NEURO: Orientated to person, time, mood is appropriate - Labs CBC & Chem 7: 06/30/22 05:34 06/30/22 05:34 Labs: Abnormal Lab Results - Last 24 Hours (Table) 06/29/22 06/29/22 06/29/22 Range/Units 10:03 17:58 20:28 WBC (3.8-10.6) k/uL Plt Count (150-450) k/uL Neutrophils # (1.3-7.7) k/uL Monocytes # (0-1.0) k/uL ABG pO2 59 L* (83-108) mmHg ABG HCO3 27 H (21-25) mmol/L ABG Total CO2 28 H (19-24) mmol/L ABG O2 Saturation 90.1 L (94-97) % ABG Hematocrit 51 H (34.0-46.0) % Sodium (137-145) mmol/L Chloride (98-107) mmol/L BUN (9-20) mg/dL Glucose (74-99) mg/dL Calcium (8.4-10.2) mg/dL Troponin I 120.000 H* 79.200 H* (0.000-0.034) ng/mL 06/30/22 06/30/22 Range/Units 05:34 05:34 WBC 19.5 H (3.8-10.6) k/uL Plt Count 149 L (150-450) k/uL Neutrophils # 15.3 H (1.3-7.7) k/uL Monocytes # 2.0 H (0-1.0) k/uL ABG pO2 (83-108) mmHg ABG HCO3 (21-25) mmol/L ABG Total CO2 (19-24) mmol/L ABG O2 Saturation (94-97) % ABG Hematocrit (34.0-46.0) % Sodium 134 L (137-145) mmol/L Chloride 97 L (98-107) mmol/L BUN 25 H (9-20) mg/dL Glucose 152 H (74-99) mg/dL Calcium 8.3 L (8.4-10.2) mg/dL Troponin I (0.000-0.034) ng/mL Assessment and Plan Assessment: Coronary artery disease status post angioplasty to LAD ST elevation in the anterior leads secondary to abrupt reclosure of initial PCI of the LAD, underwent sequential PCI with additional stenting Persistent atrial fibrillation Hypertension Hyperlipidemia Plan: Start amiodarone Continue Eliquis for anticoagulation Continue Lasix Continue to monitor kidney function Further recommendations based on clinical course The above impression and plan of care have been discussed and directed by the signing physician. Sade Walsh, nurse practitioner, acting as scribe for signing physician.
--- NOTE | 2022-06-30 13:37 | P.CNPUL ---
History of Present Illness Consult date: 06/30/22 Requesting physician: Evan Awad Reason for consult: dyspnea Chief complaint: Shortness of breath History of present illness: This is a 76-year-old white male with history of chronic atrial fibrillation, previous ablation and previous stent placement in 2011. Patient is also known to have history of hypertension, hypothyroidism, previous CO, patient had a recent positive stress test, this was done for exertional dyspnea. Underwent cardiac catheterization by Dr. ANIL Molina, patient had elective PCI of proximal LAD around 10:30 AM. Postoperatively, in p.m., patient developed chest pain and ST elevation in the anterior leads, patient was taken back emergently to the cardiac Pump Station Operator, and he was found to have on the percent occlusion of the LAD, patient had another stent placement and admitted to the ICU after the stent placement. In the ICU, the patient developed worsening shortness of breath required oxygen at 10 L/m chest x-ray clearly showed evidence of pulmonary edema. Patient was given diuretics overnight, significant improvement noted initially, but this morning his chest x-ray is showing worsening pulmonary edema again, and he is receiving more Lasix this morning. Patient clearly had LV dysfunction with ejection fraction of 25-30%. Very consistent with ischemic cardiomyopathy and LV dysfunction. In addition to this the patient was noted to have atrial fibrillation with RVR, and he will be started on amiodarone as per cardiology. Review of Systems Constitutional: Patient denies fever chills or weight loss or weakness. GI: Denies nausea vomiting abdominal pain melena or hematemesis Cardiovascular: As noted in HPI. Respiratory: Some shortness of breath, no cough, no wheezing, no fever, no chills. Neurologic: No headache no blurred vision dizziness or syncope. Musculoskeletal: Negative. Skin: Negative Psychiatric: Denies any symptoms of active depression or anxiety. Endocrine: Negative. Genitourinary: No dysuria frequency urgency or hematuria. Past Medical History Past Medical History: Atrial Fibrillation, Coronary Artery Disease (CAD), Chest Pain / Angina, Heart Failure, GERD/Reflux, Hyperlipidemia, Hypertension, Myocardial Infarction (non Q-wave), Osteoarthritis (OA), Pneumonia, Thyroid Disorder Additional Past Medical History / Comment(s): 10/04/15 Pt presented to [facility] ER with L sided chest pain and jaw pain which awoke him from sleep. He was also SOB and diaphoretic. He is being admitted with clinical impression of AFib, chest pain and leukocytosis. Other HX: CHF-chronic systolic dysfunction, nonsustained VTach, dilated ascending aorta 37mm, hypothyroidism, chronic GOUT, DIVERTICULOSIS, DUODENAL ULCER 1978, ARTHTITIS, DJD, psoriasis, tinnitis, sinus problems. Last Myocardial Infarction Date:: 2004 History of Any Multi-Drug Resistant Organisms: None Reported Past Surgical History: Ablation, Appendectomy, Heart Catheterization, Heart Catheterization With Stent (4 with stents placed 2 vessels 2004 one-vessel 2005 and one-vessel 2011), Hernia Repair, Orthopedic Surgery, Tonsillectomy Additional Past Surgical History / Comment(s): STENT X4 per pt with last stent placed 2011, [place] CARDIOVERSION X4 -last one 02/09/15, last ccath 12/2014, 12/22/14 cardiac ablation, LT KNEE BURSA REMOVED, LT KNEE ARTHROSCOPY in and , VASECTOMY, HEAD INJURY- RECONSTRUCTIVE EAR SX 1977, R ear scapiotomy 2005, R inguinal hernia repair. Past Anesthesia/Blood Transfusion Reactions: No Reported Reaction Additional Past Anesthesia/Blood Transfusion Reaction / Comment(s): Pt has never received blood. Date of Last Stent Placement:: 2011 Smoking Status: Former smoker - Past Family History Father Family Medical History: Myocardial Infarction (CO) Additional Family Medical History / Comment(s): Father after his 3rd CO at age 59yrs. Mother Family Medical History: No Reported History, Myocardial Infarction (CO) (At age 77) Additional Family Medical History / Comment(s): Mother of an CO at age 77 yrs. Sister(s) Family Medical History: No Reported History Medications and Allergies Home Medications Medication Instructions Recorded Confirmed Type Aspirin 81 mg PO DAILY 12/18/14 06/28/22 History Digoxin [Lanoxin] 125 mcg PO DAILY 12/18/14 06/28/22 History Levothyroxine Sodium [Synthroid] 25 mcg PO DAILY 12/18/14 06/28/22 History Spironolactone 25 mg PO DAILY 12/18/14 06/28/22 History allopurinoL [Allopurinol] 100 mg PO DAILY 12/18/14 06/28/22 History Warfarin Sodium [Coumadin] 5 mg PO DIRECTED 02/04/15 06/28/22 History Magnesium 250 mg PO MOWEFR 10/04/15 06/28/22 History Metoprolol Tartrate [Lopressor] 100 mg PO DAILY 10/04/15 06/28/22 History Meloxicam [Mobic] 7.5 mg PO BID PRN 06/28/22 06/28/22 History Metoprolol Tartrate [Lopressor] 50 mg PO HS 06/28/22 06/28/22 History Rosuvastatin Calcium [Crestor] 5 mg PO HS 06/28/22 06/28/22 History Allergies Allergy/AdvReac Type Severity Reaction Status Date / Time erythromycin base AdvReac Diarrhea Verified 10/04/15 06:14 Physical Exam Vitals: Vital Signs Temp Pulse Resp BP Pulse Ox 06/30/22 12:20 124 H 18 97/56 95 06/30/22 12:00 97.8 F 131 H 20 90/62 95 06/30/22 11:40 140 H 20 98/86 93 L 06/30/22 11:20 125 H 20 90/68 94 L 06/30/22 11:00 140 H 20 95/69 94 L 06/30/22 10:40 154 H 20 97/74 94 L 06/30/22 10:20 151 H 20 88/67 93 L 06/30/22 10:00 135 H 20 85/58 94 L 06/30/22 09:40 142 H 19 96/70 93 L 06/30/22 09:20 137 H 32 H 102/69 93 L 06/30/22 09:00 133 H 24 97/76 93 L 06/30/22 08:40 129 H 29 H 91/28 94 L 06/30/22 08:20 106 H 29 H 81/62 92 L 06/30/22 08:00 98.5 F 124 H 30 H 90/71 91 L 06/30/22 07:40 118 H 30 H 101/68 06/30/22 07:20 130 H 28 H 93 L 06/30/22 07:00 120 H 28 H 95/76 06/30/22 06:40 124 H 29 H 102/85 06/30/22 06:20 135 H 28 H 100/62 93 L 06/30/22 06:00 110 H 14 95/73 94 L 06/30/22 05:40 140 H 30 H 99/46 93 L 06/30/22 05:20 133 H 26 H 94 L 06/30/22 05:00 130 H 24 107/82 95 06/30/22 04:40 118 H 26 H 93/72 95 06/30/22 04:20 137 H 34 H 101/77 95 06/30/22 04:00 118 H 27 H 97/69 94 L 06/30/22 03:40 128 H 25 H 104/76 94 L 06/30/22 03:22 27 H 06/30/22 03:20 115 H 21 101/79 06/30/22 03:00 115 H 31 H 97/63 93 L 06/30/22 02:40 149 H 24 99/69 06/30/22 02:20 130 H 16 105/70 94 L 06/30/22 02:00 120 H 31 H 106/72 94 L 06/30/22 01:40 101 H 28 H 99/78 06/30/22 01:20 135 H 29 H 96/72 96 06/30/22 01:00 105 H 15 101/70 06/30/22 00:40 128 H 28 H 102/77 93 L 06/30/22 00:20 137 H 30 H 115/84 95 06/30/22 00:00 121 H 25 H 106/61 93 L 06/29/22 23:40 101 H 28 H 106/75 93 L 06/29/22 23:33 111 H 17 106/75 93 L 06/29/22 23:25 31 H 06/29/22 23:20 123 H 29 H 105/66 93 L 06/29/22 23:00 104 H 21 117/107 92 L 06/29/22 22:40 140 H 23 102/77 90 L 06/29/22 22:20 122 H 35 H 97/66 92 L 06/29/22 22:00 125 H 33 H 102/74 92 L 06/29/22 21:40 111 H 35 H 95/65 91 L 06/29/22 21:20 104 H 31 H 91 L 06/29/22 21:00 102 H 31 H 91 L 06/29/22 20:51 91 L 06/29/22 20:39 110 H 06/29/22 20:00 98.0 F 116 H 27 H 105/73 89 L 06/29/22 19:00 115 H 31 H 113/74 89 L 06/29/22 18:00 115 H 30 H 98/76 92 L 06/29/22 17:00 120 H 28 H 98/76 91 L 06/29/22 16:00 97.8 F 115 H 27 H 108/74 92 L 06/29/22 15:00 92 28 H 108/74 91 L 06/29/22 14:00 110 H 24 94/63 90 L Intake and Output 06/29/22 06/30/22 06/30/22 22:59 06:59 14:59 Intake Total 300 50 Output Total 097 468 9426 Balance -350 -330 -1450 Intake: IV 0 0 KVO 0 0 Oral 300 50 Output: Urine 226 706 2300 Other: Voiding Method Urinal Urinal Urinal Weight 35.2 kg Physical Exam: Revealed 76-year-old white male in no distress on 10 L nasal cannula Head: Atraumatic, normocephalic. HEENT:[Neck is supple.] [No neck masses.] [No thyromegaly.] [No JVD.] Chest: Symmetrical chest expansion, crackles at the bases, no rhonchi and no wheezes. Cardiac Exam: Tachycardic, irregular irregular rhythm.. [Normal S1 and S2, no S3 gallop, 2/6 systolic murmur thought the precordium Abdomen: [Soft, nontender, no megaly, no rebound, no guarding, normal bowel sounds.] Extremities: [No clubbing, no edema, no cyanosis.] Good pulses bilaterally. Neurological Exam: [No focal neurologic deficit.]Alert oriented 3, no gross focal neurologic deficit Psychiatric: Normal mood affect and normal mental status examination. Skin: No rashes. [place] skeletal: No deformities and no limitation in range of motion. Results - Laboratory Findings CBC and BMP: 06/30/22 05:34 06/30/22 05:34 ABG ABG pH 7.43 (7.35-7.45) 06/29/22 20:28 ABG pCO2 40 mmHg (35-45) 06/29/22 20:28 ABG pO2 59 mmHg (83-108) L* 06/29/22 20:28 ABG O2 Saturation 90.1 % (94-97) L 06/29/22 20:28 PT/INR, D-dimer PT 12.7 sec (9.0-12.0) H 06/29/22 07:16 INR 1.2 (<1.2) H 06/29/22 07:16 Abnormal lab findings: Abnormal Labs 06/28/22 06/28/22 06/28/22 09:30 09:30 16:15 WBC MCHC Plt Count Neutrophils # Monocytes # PT 28.8 H INR 2.9 H ABG pO2 ABG HCO3 ABG Total CO2 ABG O2 Saturation ABG Hematocrit Sodium Potassium Chloride Carbon Dioxide BUN Glucose 122 H POC Glucose (mg/dL) 163 H Calcium Troponin I 06/29/22 06/29/22 06/29/22 05:28 05:28 07:16 WBC 16.4 H MCHC 30.7 L Plt Count Neutrophils # 13.3 H Monocytes # 1.3 H PT INR ABG pO2 ABG HCO3 ABG Total CO2 ABG O2 Saturation ABG Hematocrit Sodium 133 L Potassium 5.6 H Chloride Carbon Dioxide 20 L BUN 22 H Glucose 158 H POC Glucose (mg/dL) Calcium 8.1 L Troponin I 137.000 H* 06/29/22 06/29/22 06/29/22 07:16 10:03 17:58 WBC MCHC Plt Count Neutrophils # Monocytes # PT 12.7 H INR 1.2 H ABG pO2 ABG HCO3 ABG Total CO2 ABG O2 Saturation ABG Hematocrit Sodium Potassium Chloride Carbon Dioxide BUN Glucose POC Glucose (mg/dL) Calcium Troponin I 120.000 H* 79.200 H* 06/29/22 06/30/22 06/30/22 20:28 05:34 05:34 WBC 19.5 H MCHC Plt Count 149 L Neutrophils # 15.3 H Monocytes # 2.0 H PT INR ABG pO2 59 L* ABG HCO3 27 H ABG Total CO2 28 H ABG O2 Saturation 90.1 L ABG Hematocrit 51 H Sodium 134 L Potassium Chloride 97 L Carbon Dioxide BUN 25 H Glucose 152 H POC Glucose (mg/dL) Calcium 8.3 L Troponin I - Diagnostic Findings Chest x-ray: image reviewed (As noted in HPI, chest x-ray is consistent with congestive heart failure) Assessment and Plan Assessment: Impression: Acute hypoxic respiratory failure secondary to acute systolic congestive heart failure, acute pulmonary edema Ischemic cardiomyopathy and LV dysfunction Coronary artery disease with periprocedural CO following abrupt reclosure of LAD stent requiring subsequent evaluation and PCI/additional stenting done Benign essential hypertension Dyslipidemia Hypothyroidism Atrial fibrillation with RVR, another contributing factor to acute congestive heart failure. Recommendation: Continue diuretics, Lasix 40 mg IV push twice a day Continue oxygen and titrate accordingly maintaining O2 saturation above 92% Continue to monitor the ICU Continue eliquis for his atrial fibrillation Agree with amiodarone for atrial fibrillation with RVR Close monitoring of his pulmonary status and use diuretics accordingly. Strict monitoring of I's and O's GI and DVT prophylaxis Continue Plavix, statins, and beta blockers. We will continue to follow. Prognosis is guarded. Time with Patient: Greater than 30
[2022-06-30] MEDS ORDERED: DIGOXIN 250 MCG/ML 2 ML AMP IVP ONE (14:46)
[2022-06-30] MEDS: MAGNESIUM OXIDE 400 MG TAB PO SCH (15:06)
[2022-06-30] MEDS ORDERED: DEXTROSE 5% IN WATER 100 ML with AMIODARONE 150 MG IV ONE (20:39)
[2022-06-30] MEDS: LOSARTAN 25 MG TAB PO SCH (20:45)
[2022-06-30] MEDS ORDERED: AMIODARONE 360 MG in DEXTROSE 5% IN WATER 200 ML IV ONE ×2 (20:50)
[2022-06-30] MEDS ORDERED: FUROSEMIDE 10 MG/ML 4 ML VIAL IV SCH (21:00)
[2022-06-30] MEDS: ONDANSETRON 4 MG/2 ML VIAL IVP PRN (22:11)
[2022-07-01] MEDS: AMIODARONE 450 MG in DEXTROSE 5% IN WATER 250 ML IV SCH ×4 (02:42→17:15)
[2022-07-01] MEDS: LEVOTHYROXINE 25 MCG TAB PO SCH (05:53)
[2022-07-01 06:55] LABS: Basophils # (A) 0.2 k/uL (0-0.2); Basophils % (A) 1 %; Eosinophils # (A) 0.1 k/uL (0-0.7); Eosinophils % (A) 0 %; HCT 45.8 % (39.0-53.0); HGB 14.8 gm/dL (13.0-17.5); Lymphocytes # (A) 1.7 k/uL (1.0-4.8); Lymphocytes % (A) 8 %; MCH 31.4 pg (25.0-35.0); MCHC 32.3 g/dL (31.0-37.0); MCV 97.1 fL (80.0-100.0); Mean Platelet Volume 8.4; Monocytes % (A) 10 %; Neutrophils # (A) 15.9 k/uL (1.3-7.7); Neutrophils % (A) 79 %; Platelet Count 159 k/uL (150-450); RBC 4.72 m/uL (4.30-5.90); RDW 13.5 % (11.5-15.5); WBC 20.2 k/uL (3.8-10.6)
--- NOTE | 2022-07-01 07:21 | XR ---
EXAMINATION TYPE: XR chest 1V portable DATE OF EXAM: 07/01/2022 5:57 AM COMPARISON: Chest radiograph from one day prior. TECHNIQUE: XR chest 1V portable Frontal view of the chest. CLINICAL INDICATION:Male, 76 years old with history of pulmonary edema; FINDINGS: Lungs/Pleura: Improved aeration of the lungs on today's exam. There is no evidence of pleural effusio n, focal consolidation, or pneumothorax. Pulmonary vascularity: Unremarkable. Heart/mediastinum: Cardiomediastinal silhouette is prominent in size. Musculoskeletal: No acute osseous pathology. IMPRESSION: Improved aeration on today's exam. Attention on follow-up imaging.
[2022-07-01] MEDS ORDERED: FUROSEMIDE 10 MG/ML 4 ML VIAL IV SCH ×2 (09:00)
[2022-07-01] MEDS: DIGOXIN 125 MCG TAB PO SCH (09:06)
[2022-07-01] MEDS: APIXABAN 5 MG TAB PO SCH ×2 (09:06→20:11)
[2022-07-01] MEDS: CLOPIDOGREL 75 MG TAB PO SCH (09:07)
[2022-07-01] MEDS: SPIRONOLACTONE 25 MG TAB PO SCH (09:07)
[2022-07-01] MEDS: allopurinoL 100 MG TAB PO SCH (09:09)
[2022-07-01] MEDS: METOPROLOL TARTRATE 50 MG TAB PO SCH ×3 (11:23→20:11)
--- NOTE | 2022-07-01 13:16 | P.PN ---
Subjective Progress Note Date: 07/01/22 Principal diagnosis: Acute hypoxic respiratory failure secondary to Acute systolic congestive heart failure This is a 76-year-old white male with history of chronic atrial fibrillation, previous ablation and previous stent placement in 2011. Patient is also known to have history of hypertension, hypothyroidism, previous NC, patient had a recent positive stress test, this was done for exertional dyspnea. Underwent cardiac catheterization by Dr. ANIL Molina, patient had elective PCI of proximal LAD around 10:30 AM. Postoperatively, in p.m., patient developed chest pain and ST elevation in the anterior leads, patient was taken back emergently to the cardiac Sales Consultant Residential Manager, and he was found to have on the percent occlusion of the LAD, patient had another stent placement and admitted to the ICU after the stent placement. In the ICU, the patient developed worsening shortness of breath required oxygen at 10 L/m chest x-ray clearly showed evidence of pulmonary edema. Patient was given diuretics overnight, significant improvement noted initially, but this morning his chest x-ray is showing worsening pulmonary edema again, and he is receiving more Lasix this morning. Patient clearly had LV dysfunction with ejection fraction of 25-30%. Very consistent with ischemic cardiomyopathy and LV dysfunction. In addition to this the patient was noted to have atrial fibrillation with RVR, and he will be started on amiodarone as per cardiology. Reevaluated today on 07/01/22, patient remains in the ICU, feeling much better today compared to the last few days. Patient diuresed almost 2.5 L. He is on 5 L nasal cannula instead of 10 L yesterday. Breathing easier, remains on ami odarone at 0.5 mg/m. Patient is hemodynamically stable, not in distress. Follow-up chest x-ray today showed improved aeration compared to his initial chest x-ray, obviously the patient's pulmonary edema is resolving. Patient remains on Lasix at 40 mg IV push every 12 hours. WBC count today is 20.2 hemoglobin is 14.8. Basic metabolic profile is relatively unremarkable, renal profile remains normal. Troponin was elevated at 79.2 and his BNP level yesterday was almost 7000 Objective - Vital Signs Vital signs: Vital Signs Temp 98.5 F 07/01/22 12:00 Pulse 112 H 07/01/22 12:00 Resp 21 07/01/22 12:00 BP 93/63 07/01/22 12:00 Pulse Ox 96 07/01/22 12:00 FiO2 Intake & Output 06/30/22 07/01/22 07/01/22 18:59 06:59 18:59 Intake Total 314.0 440 Output Total 1850 700 200 Balance -1850 -386.0 240 Weight 98 kg Intake: Intake, IV Titration 314.0 Amount Amiodarone 360 mg In 165 Dextrose 5% in Water 200 ml @ 1 MG/MIN 33.333 mls/ hr IV .Q6H ONE Rx#: [id number] Amiodarone 450 mg In 149.0 Dextrose 5% in Water 250 ml @ 0.5 MG/MIN 16.667 mls/hr IV .Q15H MYESHA Rx#: [id number] Oral 440 Output: Urine 1850 700 200 Other: Voiding Method Urinal Urinal Urinal ABP, PAP, CO, CI - Last Documented Arterial Blood Pressure 259/259 - Exam Physical Exam: Revealed a 76-year-old white male in no distress on 5 L nasal cannula Head: Atraumatic, normocephalic. HEENT:[Neck is supple.] [No neck masses.] [No thyromegaly.] [No JVD.] Chest: [Symmetrical chest expansion fine crackles at the bases.] Cardiac Exam: Irregular irregular rhythm [Normal S1 and S2, no S3 gallop, no murmur.] Abdomen: [Soft, nontender, no megaly, no rebound, no guarding, normal bowel sounds.] Extremities: [No clubbing, no edema, no cyanosis.] Neurological Exam: [No focal neurologic deficit.] Alert and oriented 3 Psychiatric: Normal mood affect and normal mental status examination. - Labs CBC & Chem 7: 07/01/22 05:47 07/01/22 05:47 Labs: Abnormal Lab Results - Last 24 Hours (Table) 07/01/22 07/01/22 Range/Units 05:47 05:47 WBC 20.2 H (3.8-10.6) k/uL Neutrophils # 15.9 H (1.3-7.7) k/uL Monocytes # 2.0 H (0-1.0) k/uL Sodium 131 L (137-145) mmol/L Chloride 91 L (98-107) mmol/L BUN 31 H (9-20) mg/dL Glucose 142 H (74-99) mg/dL Calcium 8.0 L (8.4-10.2) mg/dL Assessment and Plan Assessment: Impression: Acute hypoxic respiratory failure secondary to acute systolic congestive heart failure, acute pulmonary edema Ischemic cardiomyopathy and LV dysfunction Coronary artery disease with periprocedural NC following abrupt reclosure of LAD stent requiring subsequent evaluation and PCI/additional stenting done Benign essential hypertension Dyslipidemia Hypothyroidism Atrial fibrillation with RVR, another contributing factor to acute congestive heart failure. Recommendation: Continue Lasix Continue oxygen and titrate accordingly maintaining O2 saturation above 92% Consider transfer the patient to a monitor bed on selective Continue eliquis for his atrial fibrillation Continue amiodarone Strict monitoring of I's and O's GI and DVT prophylaxis Continue Plavix, statins, and beta blockers. Will follow. Time with Patient: Less than 30
--- NOTE | 2022-07-01 14:53 | P.PN ---
Subjective HISTORY OF PRESENTING ILLNESS Patient seen today resting comfortably in bed no signs of acute distress. He denies chest pain or increased shortness of breath but states he felt better. Patient has A. fib RVR on the monitor he has a history of A. fib and continues on Eliquis. Heart rate is 120s to 150s. Will start amiodarone. Last night patient had an episode of respiratory distress, his chest x-ray showed bilateral pulmonary edema worsened in the left upper lobe correlated for acute pneumonia or acute heart failure. Patient has received a total of the 100mg of IV Lasix between last night and today. BUN is 25 creatinine is 1. Chest x-ray still correlates for with bilateral patchy infiltrates. Will continue with IV Lasix. Patient's echocardiogram shows a severely decreased LV function with an EF of 25-30%. Patient is on 10 L nasal cannula 07/01 Patient seen and examined. Patient's blood pressures have been borderline with even some readings in the 70s over 60s. He denies feeling frankly lightheaded however has only been sitting up in the chair. Blood pressure currently 86/54. Has remained mildly tachycardic with A. fib with heart rates in the 100 to 1:15 range. Denies any chest pain or pressure. Has been feeling somewhat nauseous and not much of an appetite. Denies any fevers or chills. PHYSICAL EXAMINATION Vital signs reviewed. CONSTITUTIONAL: No apparent distress, mildly ill appearing HEENT: Head is normocephalic. Pupils are equal, round. Sclerae anicteric. Mucous membranes of the mouth are moist. No JVD. No carotid bruit. CHEST EXAMINATION: Lungs are clear to auscultation. No chest wall tenderness is noted on palpation or with deep breathing. HEART EXAMINATION: Irregularly irregular rate and rhythm. S1, S2 heard. No murmurs, gallops or rub. ABDOMEN: Soft, nontender. Positive bowel sounds. EXTREMITIES: 2+ peripheral pulses, no lower extremity edema and no calf tenderness. NEUROLOGIC EXAMINATION: Patient is awake, alert and oriented x3. ASSESSMENT Coronary artery disease status post angioplasty to LAD ST elevation in the anterior leads secondary to abrupt reclosure of initial PCI of the LAD, underwent sequential PCI with additional stenting Persistent atrial fibrillation with mild RVR History of hypertension, currently hypotensive Hyperlipidemia Acute on Chronic systolic heart failure Plan: Continue with supportive care and heart failure and. He appears euvolemic and we will decrease Lasix to 40 mg IV daily. Continue with amiodarone as well as digoxin for attempted rate control. Decrease losartan at 12.5 mg daily given hypotensive episodes and decrease metoprolol to 50 mg twice a day. Patient may not be able to tolerate as much heart failure regimen with possibility of wo rsening heart failure. Hopeful optimize heart failure regimen DC home however monitor closely. Continue Eliquis for anticoagulation and Plavix. Objective - Vital Signs Vital signs: Vital Signs Temp 98.5 F 07/01/22 12:00 Pulse 103 H 07/01/22 14:00 Resp 20 07/01/22 14:00 BP 81/65 07/01/22 14:00 Pulse Ox 97 07/01/22 14:00 FiO2 Intake & Output 06/30/22 07/01/22 07/01/22 18:59 06:59 18:59 Intake Total 314.0 440 Output Total 1850 700 400 Balance -1850 -386.0 40 Weight 98 kg Intake: Intake, IV Titration 314.0 Amount Amiodarone 360 mg In 165 Dextrose 5% in Water 200 ml @ 1 MG/MIN 33.333 mls/ hr IV .Q6H ONE Rx#: [id number] Amiodarone 450 mg In 149.0 Dextrose 5% in Water 250 ml @ 0.5 MG/MIN 16.667 mls/hr IV .Q15H MYESHA Rx#: [id number] Oral 440 Output: Urine 1850 700 400 Other: Voiding Method Urinal Urinal Urinal ABP, PAP, CO, CI - Last Documented Arterial Blood Pressure 259/259 - Labs CBC & Chem 7: 07/01/22 05:47 07/01/22 05:47 Labs: Abnormal Lab Results - Last 24 Hours (Table) 07/01/22 07/01/22 Range/Units 05:47 05:47 WBC 20.2 H (3.8-10.6) k/uL Neutrophils # 15.9 H (1.3-7.7) k/uL Monocytes # 2.0 H (0-1.0) k/uL Sodium 131 L (137-145) mmol/L Chloride 91 L (98-107) mmol/L BUN 31 H (9-20) mg/dL Glucose 142 H (74-99) mg/dL Calcium 8.0 L (8.4-10.2) mg/dL
[2022-07-01] MEDS ORDERED: METOPROLOL TARTRATE 50 MG TAB PO SCH (15:00)
[2022-07-01] MEDS ORDERED: METOPROLOL TARTRATE 25 MG TAB PO SCH (15:15)
[2022-07-01] MEDS: AMIODARONE 200 MG TAB PO SCH (20:11)
[2022-07-01] MEDS: LOSARTAN 25 MG TAB PO SCH (20:12)
[2022-07-02] MEDS: LEVOTHYROXINE 25 MCG TAB PO SCH (05:52)
[2022-07-02 06:25] LABS: Basophils # (A) 0.1 k/uL (0-0.2); Basophils % (A) 0 %; Eosinophils # (A) 0.2 k/uL (0-0.7); Eosinophils % (A) 1 %; HCT 45.4 % (39.0-53.0); HGB 15.2 gm/dL (13.0-17.5); Lymphocytes # (A) 1.9 k/uL (1.0-4.8); Lymphocytes % (A) 12 %; MCH 32.2 pg (25.0-35.0); MCHC 33.5 g/dL (31.0-37.0); MCV 96.2 fL (80.0-100.0); Mean Platelet Volume 8.2; Monocytes # (A) 1.3 k/uL (0-1.0); Monocytes % (A) 8 %; Neutrophils # (A) 12.4 k/uL (1.3-7.7); Neutrophils % (A) 77 %; Platelet Count 200 k/uL (150-450); RBC 4.72 m/uL (4.30-5.90); RDW 13.9 % (11.5-15.5); WBC 16.2 k/uL (3.8-10.6)
[2022-07-02 06:35] LABS: Calcium 7.9 mg/dL (8.4-10.2); Potassium 3.9 mmol/L (3.5-5.1)
[2022-07-02] MEDS: allopurinoL 100 MG TAB PO SCH (08:37)
[2022-07-02] MEDS: AMIODARONE 200 MG TAB PO SCH ×2 (08:37→20:37)
[2022-07-02] MEDS: METOPROLOL TARTRATE 50 MG TAB PO SCH ×2 (08:38→20:37)
[2022-07-02] MEDS: CLOPIDOGREL 75 MG TAB PO SCH (08:38)
[2022-07-02] MEDS: APIXABAN 5 MG TAB PO SCH ×2 (08:38→20:37)
[2022-07-02] MEDS: SPIRONOLACTONE 25 MG TAB PO SCH (08:38)
[2022-07-02] MEDS: DIGOXIN 125 MCG TAB PO SCH (08:39)
[2022-07-02] MEDS ORDERED: FUROSEMIDE 10 MG/ML 4 ML VIAL IV SCH (09:00)
--- NOTE | 2022-07-02 09:53 | XR ---
EXAMINATION TYPE: XR chest 1V portable DATE OF EXAM: 07/02/2022 CLINICAL HISTORY: Difficulty breathing and CHF progress study. TECHNIQUE: Single AP portable upright view of the chest is obtained. COMPARISON: Chest x-ray from one day earlier FINDINGS: Increasing bibasilar opacities. There is at least tiny left-sided pleural effusion. Cardia c silhouette size stable and mildly enlarged. Osseous structures are intact. IMPRESSION: Findings consistent with CHF exacerbation as there is mild cardiomegaly with new small to tiny bilateral pleural effusions suspected. Developing bibasilar acute infiltrate and/or atelectasis is not excluded. Correlate clinically.
--- NOTE | 2022-07-02 12:30 | P.PN ---
Subjective Progress Note Date: 07/02/22 Principal diagnosis: Acute hypoxic respiratory failure secondary to Acute systolic congestive heart failure This is a 76-year-old white male with history of chronic atrial fibrillation, previous ablation and previous stent placement in 2011. Patient is also known to have history of hypertension, hypothyroidism, previous MT, patient had a recent positive stress test, this was done for exertional dyspnea. Underwent cardiac catheterization by Dr. ANIL Molina, patient had elective PCI of proximal LAD around 10:30 AM. Postoperatively, in p.m., patient developed chest pain and ST elevation in the anterior leads, patient was taken back emergently to the cardiac [facility], and he was found to have on the percent occlusion of the LAD, patient had another stent placement and admitted to the ICU after the stent placement. In the ICU, the patient developed worsening shortness of breath required oxygen at 10 L/m chest x-ray clearly showed evidence of pulmonary edema. Patient was given diuretics overnight, significant improvement noted initially, but this morning his chest x-ray is showing worsening pulmonary edema again, and he is receiving more Lasix this morning. Patient clearly had LV dysfunction with ejection fraction of 25-30%. Very consistent with ischemic cardiomyopathy and LV dysfunction. In addition to this the patient was noted to have atrial fibrillation with RVR, and he will be started on amiodarone as per cardiology. Reevaluated today on 07/01/22, patient remains in the ICU, feeling much better today compared to the last few days. Patient diuresed almost 2.5 L. He is on 5 L nasal cannula instead of 10 L yesterday. Breathing easier, remains on ami odarone at 0.5 mg/m. Patient is hemodynamically stable, not in distress. Follow-up chest x-ray today showed improved aeration compared to his initial chest x-ray, obviously the patient's pulmonary edema is resolving. Patient remains on Lasix at 40 mg IV push every 12 hours. WBC count today is 20.2 hemoglobin is 14.8. Basic metabolic profile is relatively unremarkable, renal profile remains normal. Troponin was elevated at 79.2 and his BNP level yesterday was almost 7000 Reevaluated today on 07/02/22, patient remains in the ICU, continues to improve, his pulmonary status is better, nonetheless he continues to have intermittent episodes of atrial fibrillation with RVR being addressed by cardiology on the case. Chest x-ray showed significant improvement in his congestive heart failure, patient is developing minimal basilar atelectasis. Tiny pleural effusions noted. Nonetheless the chest x-ray is better compared to the chest x- ray yesterday and the day before. Patient is now on 2 L nasal cannula, and his O2 saturation is 95%. WBC count is 16.2 hemoglobin 15.2, sodium is a bit the low side 129 bicarb is normal renal profile is normal Objective - Vital Signs Vital signs: Vital Signs Temp 97.8 F 07/02/22 08:00 Pulse 90 07/02/22 11:00 Resp 7 L 07/02/22 11:00 BP 107/73 07/02/22 11:00 Pulse Ox 95 07/02/22 08:00 FiO2 Intake & Output 07/01/22 07/02/22 07/02/22 18:59 06:59 18:59 Intake Total 1022.505 0 240 Output Total 625 835 850 Balance 397.505 -835 -610 Weight 98 kg Intake: IV 0 0 KVO 0 0 Intake, IV Titration 242.505 Amount Amiodarone 450 mg In 242.505 Dextrose 5% in Water 250 ml @ 0.5 MG/MIN 16.667 mls/hr IV .Q15H [facility] Rx#: [id number] Oral 780 240 Output: Urine 625 835 850 Other: Voiding Method Urinal Urinal Urinal ABP, PAP, CO, CI - Last Documented Arterial Blood Pressure 259/259 - Exam Physical Exam: Revealed a 76-year-old white male in no distress on 2 L nasal cannula Head: Atraumatic, normocephalic. HEENT:[Neck is supple.] [No neck masses.] [No thyromegaly.] [No JVD.] Chest: [Symmetrical chest expansion fine crackles at the bases.] Cardiac Exam: Irregular irregular rhythm [Normal S1 and S2, no S3 gallop, no murmur.] Abdomen: [Soft, nontender, no megaly, no rebound, no guarding, normal bowel sounds.] Extremities: [No clubbing, no edema, no cyanosis.] Neurological Exam: [No focal neurologic deficit.] Alert and oriented 3 Psychiatric: Normal mood affect and normal mental status examination. - Labs CBC & Chem 7: 07/02/22 05:44 07/02/22 05:44 Labs: Abnormal Lab Results - Last 24 Hours (Table) 07/02/22 07/02/22 Range/Units 05:44 05:44 WBC 16.2 H (3.8-10.6) k/uL Neutrophils # 12.4 H (1.3-7.7) k/uL Monocytes # 1.3 H (0-1.0) k/uL Sodium 129 L (137-145) mmol/L Chloride 89 L (98-107) mmol/L BUN 32 H (9-20) mg/dL Glucose 118 H (74-99) mg/dL Calcium 7.9 L (8.4-10.2) mg/dL Assessment and Plan Assessment: Impression: Acute hypoxic respiratory failure secondary to acute systolic congestive heart failure, acute pulmonary edema Ischemic cardiomyopathy and LV dysfunction Coronary artery disease with periprocedural MT following abrupt reclosure of LAD stent requiring subsequent evaluation and PCI/additional stenting done Benign essential hypertension Dyslipidemia Hypothyroidism Atrial fibrillation with RVR, another contributing factor to acute congestive heart failure. Recommendation: Continue oxygen and titrate accordingly maintaining O2 saturation above 92% Consider transfer the patient to a monitor bed on selective Continue eliquis for his atrial fibrillation, his A. fib with RVR is being addressed by cardiology Strict monitoring of I's and O's GI and DVT prophylaxis Continue Plavix, statins, and beta blockers. Definitive transfer the patient to a monitor bed on selective if cleared by cardiology. Will follow. Time with Patient: Less than 30
--- NOTE | 2022-07-02 14:44 | P.PN ---
Subjective HISTORY OF PRESENTING ILLNESS Patient seen today resting comfortably in bed no signs of acute distress. He denies chest pain or increased shortness of breath but states he felt better. Patient has A. fib RVR on the monitor he has a history of A. fib and continues on Eliquis. Heart rate is 120s to 150s. Will start amiodarone. Last night patient had an episode of respiratory distress, his chest x-ray showed bilateral pulmonary edema worsened in the left upper lobe correlated for acute pneumonia or acute heart failure. Patient has received a total of the 100mg of IV Lasix between last night and today. BUN is 25 creatinine is 1. Chest x-ray still correlates for with bilateral patchy infiltrates. Will continue with IV Lasix. Patient's echocardiogram shows a severely decreased LV function with an EF of 25-30%. Patient is on 10 L nasal cannula 07/01 Patient seen and examined. Patient's blood pressures have been borderline with even some readings in the 70s over 60s. He denies feeling frankly lightheaded however has only been sitting up in the chair. Blood pressure currently 86/54. Has remained mildly tachycardic with A. fib with heart rates in the 100 to 1:15 range. Denies any chest pain or pressure. Has been feeling somewhat nauseous and not much of an appetite. Denies any fevers or chills. 07/02 Patient seen and examined. Blood pressures significantly improved mainly in the 110s over 80s. His losartan have been held. His metoprolol had been decreased to 50 mg twice a day. Heart rate still in the 90s to low 100s. Denies any chest pain or pressure. PHYSICAL EXAMINATION Vital signs reviewed. CONSTITUTIONAL: No apparent distress, mildly ill appearing HEENT: Head is normocephalic. Pupils are equal, round. Sclerae anicteric. Mucous membranes of the mouth are moist. No JVD. No carotid bruit. CHEST EXAMINATION: Lungs are clear to auscultation. No chest wall tenderness is noted on palpation or with deep breathing. HEART EXAMINATION: Irregularly irregular rate and rhythm. S1, S2 heard. No murmurs, gallops or rub. ABDOMEN: Soft, nontender. Positive bowel sounds. EXTREMITIES: 2+ peripheral pulses, no lower extremity edema and no calf tenderness. NEUROLOGIC EXAMINATION: Patient is awake, alert and oriented x3. ASSESSMENT Coronary artery disease status post angioplasty to LAD ST elevation in the anterior leads secondary to abrupt reclosure of initial PCI of the LAD, underwent sequential PCI with additional stenting Persistent atrial fibrillation with mild RVR History of hypertension, currently hypotensive Hyperlipidemia Acute on Chronic systolic heart failure Plan: Continue with supportive care and heart failure regimen. Continue with amiodarone as well as digoxin for attempted rate control. Continue losartan at 12.5 mg daily and discussed not holding unless MAP < 65. Continue metoprolol 50 mg twice a day. Patient may be more symptomatic given his atrial fibrillation and attempt rhythm control. Therefore today for TERESA and cardioversion 07/03. Continue Eliquis for anticoagulation and Plavix. Objective - Vital Signs Vital signs: Vital Signs Temp 98.2 F 07/02/22 12:00 Pulse 105 H 07/02/22 14:00 Resp 16 07/02/22 14:00 BP 123/78 07/02/22 14:00 Pulse Ox 93 L 07/02/22 14:00 FiO2 Intake & Output 07/01/22 07/02/22 07/02/22 18:59 06:59 18:59 Intake Total 1022.505 0 240 Output Total 815 932 1177 Balance 397.505 -835 -785 Weight 98 kg Intake: IV 0 0 KVO 0 0 Intake, IV Titration 242.505 Amount Amiodarone 450 mg In 242.505 Dextrose 5% in Water 250 ml @ 0.5 MG/MIN 16.667 mls/hr IV .Q15H [facility] Rx#: [id number] Oral 780 240 Output: Urine 445 155 0249 Other: Voiding Method Urinal Urinal Urinal ABP, PAP, CO, CI - Last Documented Arterial Blood Pressure 259/259 - Labs CBC & Chem 7: 07/02/22 05:44 07/02/22 05:44 Labs: Abnormal Lab Results - Last 24 Hours (Table) 07/02/22 07/02/22 Range/Units 05:44 05:44 WBC 16.2 H (3.8-10.6) k/uL Neutrophils # 12.4 H (1.3-7.7) k/uL Monocytes # 1.3 H (0-1.0) k/uL Sodium 129 L (137-145) mmol/L Chloride 89 L (98-107) mmol/L BUN 32 H (9-20) mg/dL Glucose 118 H (74-99) mg/dL Calcium 7.9 L (8.4-10.2) mg/dL
[2022-07-02] MEDS ORDERED: LOSARTAN 25 MG TAB PO STA (14:48)
[2022-07-02] MEDS: LOSARTAN 25 MG TAB PO SCH (20:37)
--- NOTE | 2022-07-03 00:26 | P.PN ---
Subjective Progress Note Date: 06/30/22 Patient is a 76-year-old male with a known history of persistent atrial fibrillation on anticoagulation with Coumadin and prior history of ablation, history of stent placement and 2012, hypertension, hyperlipidemia, history of [place], hypothyroidism and previous history of smoking initially was brought to the hospital for elective cardiac catheterization. Patient has been having exertional positive stress test with a fixed component. Patient underwent elective PCI of proximal LAD at around 10:30 AM. Patient developed chest pain with ST elevation in the anterior leads started around 2:30 PM and patient was emergently taken to cardiac catheterization and was found to have 100% occlusion of the LAD status post stent placement again. Patient was admitted to MICU for further monitoring. Patient is currently remains in atrial fibrillation with elevated heart rate around 115. Denies any complaints of chest pain. No shortness breath. Complains of dizziness and lightheaded. No cough or sputum production. No fever no chills. Laboratory test showed WBC 16.4 hemoglobin 14.6 and platelets 244 Sodium 133 potassium 5.6 chloride 100 bicarb is 20 BUN 2020 creatinine 0.9 and troponin 137 and 120 and 79. Echocardiogram showed concentric mild left ventricular hypertrophy with severe hypokinesia involving the anteroseptal and inferolateral apical portion of the left ventricle suggestive ischemic cardiomyopathy and may have significant myocardial stunning as well. Patient currently on room air saturating at 92%. 06/30/2021 Patient is in the MICU. No complaints of chest pain or shortness breath. Patient is having atrial fibrillation with rapid chloride with heart rate in 140s. Was started on amiodarone drip as per cardiology recommendations. Denies any complaints of chest pain or worsening shortness of breath. Chest x-ray showed bilateral pulmonary edema. Patient is was given IV Lasix. Chest x-ray this morning showed bilateral areas of patchy infiltrate correlate for pneumonia or atypical pneumonia. Pulmonary edema is also the differential diagnosis. Laboratory test showed WBC 19.5 hemoglobin 15.4 and platelets 149 Sodium 134 potassium 4.4 chloride 97 bicarb is 27 BUN 25 and creatinine 1.02 and blood sugar is 152 proBNP 6770. Current medications reviewed. Objective - Vital Signs Vital signs: Vital Signs Temp 98.4 F 06/30/22 16:00 Pulse 117 H 06/30/22 22:00 Resp 24 06/30/22 22:00 BP 111/49 06/30/22 22:00 Pulse Ox 94 L 06/30/22 22:00 FiO2 Intake & Output 06/30/22 06/30/22 07/01/22 06:59 18:59 06:59 Intake Total 50 132 Output Total 680 1850 350 Balance -409 -7662 -823 Weight 35.2 kg Intake: IV 0 KVO 0 Intake, IV Titration 132 Amount Amiodarone 450 mg In 132 Dextrose 5% in Water 250 ml @ 0.5 MG/MIN 16.667 mls/hr IV .Q15H [facility] Rx#: [id number] Oral 50 Output: Urine 680 1850 350 Other: Voiding Method Urinal Urinal Urinal ABP, PAP, CO, CI - Last Documented Arterial Blood Pressure 259/259 - Exam PHYSICAL EXAMINATION: Patient is lying in the bed comfortably, no acute distress, awake alert and oriented.. HEENT: Normocephalic. Neck is supple. Pupils reactive. Nostrils clear. Oral cavity is moist. Neck reveals no JVD, carotid bruits, or thyromegaly. CHEST EXAMINATION: Trachea is central. Symmetrical expansion. Bibasilar diminished sounds. No wheezing.. CARDIAC: Normal S1, S2 with no gallops. No murmurs. Irregularly irregular rhythm. ABDOMEN: Soft. Bowel sounds present. Nontender. No organomegaly. No abdominal bruits. Extremities: reveal no edema. No clubbing or cyanosis Neurologically awake, alert, oriented x3 with well-coordinated movements. No focal deficits noted Skin: No rash or skin lesions. Psychiatric: Coperative. Nonsuicidal, Musculoskeletal: No joint swelling or deformity. Normal range of motion. - Labs CBC & Chem 7: 07/02/22 05:44 07/02/22 05:44 Labs: Abnormal Lab Results - Last 24 Hours (Table) 06/30/22 06/30/22 Range/Units 05:34 05:34 WBC 19.5 H (3.8-10.6) k/uL Plt Count 149 L (150-450) k/uL Neutrophils # 15.3 H (1.3-7.7) k/uL Monocytes # 2.0 H (0-1.0) k/uL Sodium 134 L (137-145) mmol/L Chloride 97 L (98-107) mmol/L BUN 25 H (9-20) mg/dL Glucose 152 H (74-99) mg/dL Calcium 8.3 L (8.4-10.2) mg/dL Assessment and Plan Assessment: Acute hypoxic aspiratory secondary to acute CHF and pulmonary edema. Periprocedural AK following abrupt reclosure after initially PCI of LAD and underwent subsequent PCI with additional stenting. Chronic persistent atrial fibrillation with RVR. History of cardiac catheterization and stent placement in 2004, 2005 and 2011. Hypertension Hyperlipidemia History AK GERD Hypothyroidism GI and DVT prophylaxis. Patient is on apixaban. Plan: Patient will be continued on IV Lasix. Also started on amiodarone. Patient will be current on telemetry monitoring. Continue with Plavix and Eliquis and continue with metoprolol and other home medications. monitor the patient in the MICU. Cardiology is on board. Continue to follow closely. Time with Patient: Greater than 30
--- NOTE | 2022-07-03 00:34 | P.PN ---
Subjective Progress Note Date: 07/01/22 Patient is a 76-year-old male with a known history of persistent atrial fibrillation on anticoagulation with Coumadin and prior history of ablation, history of stent placement and 2012, hypertension, hyperlipidemia, history of [place], hypothyroidism and previous history of smoking initially was brought to the hospital for elective cardiac catheterization. Patient has been having exertional positive stress test with a fixed component. Patient underwent elective PCI of proximal LAD at around 10:30 AM. Patient developed chest pain with ST elevation in the anterior leads started around 2:30 PM and patient was emergently taken to cardiac catheterization and was found to have 100% occlusion of the LAD status post stent placement again. Patient was admitted to MICU for further monitoring. Patient is currently remains in atrial fibrillation with elevated heart rate around 115. Denies any complaints of chest pain. No shortness breath. Complains of dizziness and lightheaded. No cough or sputum production. No fever no chills. Laboratory test showed WBC 16.4 hemoglobin 14.6 and platelets 244 Sodium 133 potassium 5.6 chloride 100 bicarb is 20 BUN 2020 creatinine 0.9 and troponin 137 and 120 and 79. Echocardiogram showed concentric mild left ventricular hypertrophy with severe hypokinesia involving the anteroseptal and inferolateral apical portion of the left ventricle suggestive ischemic cardiomyopathy and may have significant myocardial stunning as well. Patient currently on room air saturating at 92%. 06/30/2021 Patient is in the MICU. No complaints of chest pain or shortness breath. Patient is having atrial fibrillation with rapid chloride with heart rate in 140s. Was started on amiodarone drip as per cardiology recommendations. Denies any complaints of chest pain or worsening shortness of breath. Chest x-ray showed bilateral pulmonary edema. Patient is was given IV Lasix. Chest x-ray this morning showed bilateral areas of patchy infiltrate correlate for pneumonia or atypical pneumonia. Pulmonary edema is also the differential diagnosis. Laboratory test showed WBC 19.5 hemoglobin 15.4 and platelets 149 Sodium 134 potassium 4.4 chloride 97 bicarb is 27 BUN 25 and creatinine 1.02 and blood sugar is 152 proBNP 6770. 07/01/2022 Patient is in the MICU. No complaints of chest pain or worsening shortness of breath. Patient is requiring oxygen at 3 L via nasal cannula. Afebrile. No nausea vomiting abdominal pain or diarrhea. No cough or sputum production. Patient is being continued on amiodarone changed to by mouth. Digoxin was added. Patient is also on Lasix 40 mg every 12 hourly. Chest x-ray today showed improved aeration on today's exam. Laboratory test showed WBC 20.2 hemoglobin 14.8 and platelets 159 Sodium 131 potassium 4.0 chloride 91 bicarb is 30 BUN 31 creatinine 1.04 and blood sugar is 142. Current medications reviewed. Objective - Vital Signs Vital signs: Vital Signs Temp 97.9 F 07/01/22 20:00 Pulse 100 07/01/22 21:00 Resp 0 L 07/01/22 21:00 BP 92/67 07/01/22 21:00 Pulse Ox 96 07/01/22 21:00 FiO2 Intake & Output 07/01/22 07/01/22 07/02/22 06:59 18:59 06:59 Intake Total 314.0 1022.505 Output Total 700 625 0 Balance -386.0 397.505 0 Weight 98 kg Intake: Intake, IV Titration 314.0 242.505 Amount Amiodarone 360 mg In 165 Dextrose 5% in Water 200 ml @ 1 MG/MIN 33.333 mls/ hr IV .Q6H [facility] Rx#: [id number] Amiodarone 450 mg In 149.0 242.505 Dextrose 5% in Water 250 ml @ 0.5 MG/MIN 16.667 mls/hr IV .Q15H [facility] Rx#: [id number] Oral 780 Output: Urine 700 625 0 Other: Voiding Method Urinal Urinal Urinal ABP, PAP, CO, CI - Last Documented Arterial Blood Pressure 259/259 - Exam PHYSICAL EXAMINATION: Patient is lying in the bed comfortably, no acute distress, awake alert and oriented.. HEENT: Normocephalic. Neck is supple. Pupils reactive. Nostrils clear. Oral cavity is moist. Neck reveals no JVD, carotid bruits, or thyromegaly. CHEST EXAMINATION: Trachea is central. Symmetrical expansion. Bibasilar diminished sounds. No wheezing.. CARDIAC: Normal S1, S2 with no gallops. No murmurs. Irregularly irregular rhythm. ABDOMEN: Soft. Bowel sounds present. Nontender. No organomegaly. No abdominal bruits. Extremities: reveal no edema. No clubbing or cyanosis Neurologically awake, alert, oriented x3 with well-coordinated movements. No focal deficits noted Skin: No rash or skin lesions. Psychiatric: Coperative. Nonsuicidal, Musculoskeletal: No joint swelling or deformity. Normal range of motion. - Labs CBC & Chem 7: 07/02/22 05:44 07/02/22 05:44 Labs: Abnormal Lab Results - Last 24 Hours (Table) 07/01/22 07/01/22 Range/Units 05:47 05:47 WBC 20.2 H (3.8-10.6) k/uL Neutrophils # 15.9 H (1.3-7.7) k/uL Monocytes # 2.0 H (0-1.0) k/uL Sodium 131 L (137-145) mmol/L Chloride 91 L (98-107) mmol/L BUN 31 H (9-20) mg/dL Glucose 142 H (74-99) mg/dL Calcium 8.0 L (8.4-10.2) mg/dL Assessment and Plan Assessment: Acute hypoxic aspiratory secondary to acute CHF and pulmonary edema. Periprocedural [place] following abrupt reclosure after initially PCI of LAD and underwent subsequent PCI with additional stenting. Chronic persistent atrial fibrillation with RVR. History of cardiac catheterization and stent placement in 2004, 2005 and 2011. Hypertension Hyperlipidemia History [place] GERD Hypothyroidism GI and DVT prophylaxis. Patient is on apixaban. Plan: Patient will be continued on IV Lasix. Also started on amiodarone. changed to b mouth, dizoxin was added. Patient will be current on telemetry monitoring. Continue with Plavix and Eliquis and continue with metoprolol and other home medications. monitor the patient in the MICU. Cardiology is on board. Continue to follow closely. Time with Patient: Greater than 30
--- NOTE | 2022-07-03 00:37 | P.PN ---
Subjective Progress Note Date: 07/02/22 Patient is a 76-year-old male with a known history of persistent atrial fibrillation on anticoagulation with Coumadin and prior history of ablation, history of stent placement and 2012, hypertension, hyperlipidemia, history of MO, hypothyroidism and previous history of smoking initially was brought to the hospital for elective cardiac catheterization. Patient has been having exertional positive stress test with a fixed component. Patient underwent elective PCI of proximal LAD at around 10:30 AM. Patient developed chest pain with ST elevation in the anterior leads started around 2:30 PM and patient was emergently taken to cardiac catheterization and was found to have 100% occlusion of the LAD status post stent placement again. Patient was admitted to MICU for further monitoring. Patient is currently remains in atrial fibrillation with elevated heart rate around 115. Denies any complaints of chest pain. No shortness breath. Complains of dizziness and lightheaded. No cough or sputum production. No fever no chills. Laboratory test showed WBC 16.4 hemoglobin 14.6 and platelets 244 Sodium 133 potassium 5.6 chloride 100 bicarb is 20 BUN 2020 creatinine 0.9 and troponin 137 and 120 and 79. Echocardiogram showed concentric mild left ventricular hypertrophy with severe hypokinesia involving the anteroseptal and inferolateral apical portion of the left ventricle suggestive ischemic cardiomyopathy and may have significant myocardial stunning as well. Patient currently on room air saturating at 92%. 06/30/2021 Patient is in the MICU. No complaints of chest pain or shortness breath. Patient is having atrial fibrillation with rapid chloride with heart rate in 140s. Was started on amiodarone drip as per cardiology recommendations. Denies any complaints of chest pain or worsening shortness of breath. Chest x-ray showed bilateral pulmonary edema. Patient is was given IV Lasix. Chest x-ray this morning showed bilateral areas of patchy infiltrate correlate for pneumonia or atypical pneumonia. Pulmonary edema is also the differential diagnosis. Laboratory test showed WBC 19.5 hemoglobin 15.4 and platelets 149 Sodium 134 potassium 4.4 chloride 97 bicarb is 27 BUN 25 and creatinine 1.02 and blood sugar is 152 proBNP 6770. 07/01/2022 Patient is in the MICU. No complaints of chest pain or worsening shortness of breath. Patient is requiring oxygen at 3 L via nasal cannula. Afebrile. No nausea vomiting abdominal pain or diarrhea. No cough or sputum production. Patient is being continued on amiodarone changed to by mouth. Digoxin was added. Patient is also on Lasix 40 mg every 12 hourly. Chest x-ray today showed improved aeration on today's exam. Laboratory test showed WBC 20.2 hemoglobin 14.8 and platelets 159 Sodium 131 potassium 4.0 chloride 91 bicarb is 30 BUN 31 creatinine 1.04 and blood sugar is 142. 07/02/2022 Patient is in the MICU. L breathing status is much better and is being titrated down to room air. Chest x-ray showed improvement in congestive heart failure. No complaints of chest pain. No nausea vomiting abdominal pain or diarrhea. No cough or sputum production. WBC is trending down to 16.2 hemoglobin 15.1 platelets 200 Sodium 129 potassium 3.9 chloride 89 bicarb is 30 BUN 32 and creatinine 0.95 and blood sugar 118 and calcium 7.9 IV Lasix has been discontinued and blood pressure did improve. Current medications reviewed. Objective - Vital Signs Vital signs: Vital Signs Temp 97.1 F L 07/02/22 20:00 Pulse 107 H 07/02/22 20:00 Resp 16 07/02/22 20:00 BP 120/82 07/02/22 20:00 Pulse Ox 95 07/02/22 20:00 FiO2 Intake & Output 07/02/22 07/02/22 07/03/22 06:59 18:59 06:59 Intake Total 0 240 0 Output Total 835 1450 150 Balance -835 -1210 -150 Weight 98 kg Intake: IV 0 0 0 KVO 0 0 0 Oral 240 Output: Urine 835 1450 150 Other: Voiding Method Urinal Urinal ABP, PAP, CO, CI - Last Documented Arterial Blood Pressure 259/259 - Exam PHYSICAL EXAMINATION: Patient is lying in the bed comfortably, no acute distress, awake alert and oriented.. HEENT: Normocephalic. Neck is supple. Pupils reactive. Nostrils clear. Oral cavity is moist. Neck reveals no JVD, carotid bruits, or thyromegaly. CHEST EXAMINATION: Trachea is central. Symmetrical expansion. Bibasilar diminished sounds. No wheezing.. CARDIAC: Normal S1, S2 with no gallops. No murmurs. Irregularly irregular rhythm. ABDOMEN: Soft. Bowel sounds present. Nontender. No organomegaly. No abdominal bruits. Extremities: reveal no edema. No clubbing or cyanosis Neurologically awake, alert, oriented x3 with well-coordinated movements. No focal deficits noted Skin: No rash or skin lesions. Psychiatric: Coperative. Nonsuicidal, Musculoskeletal: No joint swelling or deformity. Normal range of motion. - Labs CBC & Chem 7: 07/02/22 05:44 07/02/22 05:44 Labs: Abnormal Lab Results - Last 24 Hours (Table) 07/02/22 07/02/22 Range/Units 05:44 05:44 WBC 16.2 H (3.8-10.6) k/uL Neutrophils # 12.4 H (1.3-7.7) k/uL Monocytes # 1.3 H (0-1.0) k/uL Sodium 129 L (137-145) mmol/L Chloride 89 L (98-107) mmol/L BUN 32 H (9-20) mg/dL Glucose 118 H (74-99) mg/dL Calcium 7.9 L (8.4-10.2) mg/dL Assessment and Plan Assessment: Acute hypoxic aspiratory secondary to acute CHF and pulmonary edema. on 2l now Periprocedural MO following abrupt reclosure after initially PCI of LAD and underwent subsequent PCI with additional stenting. Chronic persistent atrial fibrillation with RVR. History of cardiac catheterization and stent placement in 2004, 2005 and 2011. Hypertension Hyperlipidemia History MO GERD Hypothyroidism GI and DVT prophylaxis. Patient is on apixaban. Plan: Patient was on IV Lasix. DCed now. Also started on amiodarone. changed to by mouth, dizoxin was added. Patient will be current on telemetry monitoring. Continue with Plavix and Eliquis and continue with metoprolol and other home medications. monitor the patient in the MICU. Cardiology is on board. Continue to follow closely. Time with Patient: Greater than 30
[2022-07-03 04:07] LABS: Basophils % (A) 0 %; Eosinophils # (A) 0.1 k/uL (0-0.7); Eosinophils % (A) 1 %; HCT 45.6 % (39.0-53.0); HGB 14.8 gm/dL (13.0-17.5); Lymphocytes # (A) 1.7 k/uL (1.0-4.8); Lymphocytes % (A) 12 %; MCH 30.8 pg (25.0-35.0); MCHC 32.5 g/dL (31.0-37.0); MCV 94.7 fL (80.0-100.0); Mean Platelet Volume 8.5; Monocytes # (A) 1.4 k/uL (0-1.0); Monocytes % (A) 10 %; Neutrophils # (A) 10.4 k/uL (1.3-7.7); Neutrophils % (A) 75 %; Platelet Count 230 k/uL (150-450); RBC 4.81 m/uL (4.30-5.90); RDW 13.5 % (11.5-15.5); WBC 13.9 k/uL (3.8-10.6)
[2022-07-03 04:31] LABS: African American GFR (CKD) >90 (>60 ml/min/1.73 sqM); Anion Gap 11 mmol/L; Blood Urea Nitrogen 30 mg/dL (9-20); Calcium 8.4 mg/dL (8.4-10.2); Carbon Dioxide 32 mmol/L (22-30); Chloride 88 mmol/L (98-107); Glucose 118 mg/dL (74-99); Non-African American GFR(CKD) 84 (>60 ml/min/1.73 sqM); Potassium 3.8 mmol/L (3.5-5.1); Sodium 131 mmol/L (137-145)
[2022-07-03] MEDS: LEVOTHYROXINE 25 MCG TAB PO SCH (05:26)
--- NOTE | 2022-07-03 07:36 | XR ---
EXAMINATION TYPE: XR chest 1V portable DATE OF EXAM: 07/03/2022 5:55 AM COMPARISON: Chest radiographs from 07/02/2022 TECHNIQUE: XR chest 1V portable Frontal view of the chest. CLINICAL INDICATION:Male, 76 years old with history of CHF; FINDINGS: Lungs/Pleura: There is no evidence of pleural effusion, focal consolidation, or pneumothorax. Pulmonary vascularity: Unremarkable. Heart/mediastinum: Cardiomediastinal silhouette is prominent in size and stable. Atherosclerotic yogesh cifications are seen in the aorta. Musculoskeletal: No acute osseous pathology. IMPRESSION: Overall improvement from prior examination with resolution of bibasilar airspace opacities.
--- NOTE | 2022-07-03 07:54 | P.PN ---
Subjective Progress Note Date: 07/03/22 Principal diagnosis: Acute coronary syndrome The patient is a 76-year-old gentleman with CAD and status post angioplasty of the LAD in the setting of acute coronary syndrome as well as persistent atrial fibrillation. The patient was seen this morning. He remains stable beside being slightly tachycardic with heart rate around 105 beats per minutes. He continues to be in atrial fibrillation. He is not on any vasopressors at this point. The plan is to pursue with a TERESA and cardioversion later on today. He is on oral anticoagulation. Objective - Vital Signs Vital signs: Vital Signs Temp 98.6 F 07/03/22 04:00 Pulse 93 07/03/22 07:00 Resp 16 07/03/22 07:00 BP 129/82 07/03/22 07:00 Pulse Ox 96 07/03/22 07:00 FiO2 Intake & Output 07/02/22 07/03/22 07/03/22 18:59 06:59 18:59 Intake Total 240 0 Output Total 1450 1275 Balance -1210 -1275 Weight 95.8 kg Intake: IV 0 0 KVO 0 0 Oral 240 Output: Urine 1450 1275 Other: Voiding Method Urinal # Voids 1 ABP, PAP, CO, CI - Last Documented Arterial Blood Pressure 259/259 - Constitutional General appearance: Present: no acute distress - Respiratory Respiratory: bilateral: diminished - Cardiovascular Rhythm: irregularly irregular Heart sounds: normal: S1, S2 - Labs CBC & Chem 7: 07/03/22 03:30 07/03/22 03:30 Labs: Abnormal Lab Results - Last 24 Hours (Table) 07/03/22 07/03/22 Range/Units 03:30 03:30 WBC 13.9 H (3.8-10.6) k/uL Neutrophils # 10.4 H (1.3-7.7) k/uL Monocytes # 1.4 H (0-1.0) k/uL Sodium 131 L (137-145) mmol/L Chloride 88 L (98-107) mmol/L Carbon Dioxide 32 H (22-30) mmol/L BUN 30 H (9-20) mg/dL Glucose 118 H (74-99) mg/dL Assessment and Plan Assessment: Assessment Coronary artery disease and status post PCI of the LAD Acute coronary syndrome Persistent atrial fibrillation Multiple comorbid conditions Plan Continue the current medical regimen Follow-up with the patient after the TERESA/cardioversion
[2022-07-03] MEDS: DIGOXIN 125 MCG TAB PO SCH (09:54)
[2022-07-03] MEDS: allopurinoL 100 MG TAB PO SCH (09:54)
[2022-07-03] MEDS: APIXABAN 5 MG TAB PO SCH ×2 (09:54→21:00)
[2022-07-03] MEDS: AMIODARONE 200 MG TAB PO SCH ×2 (09:54→19:28)
[2022-07-03] MEDS: CLOPIDOGREL 75 MG TAB PO SCH (09:54)
[2022-07-03] MEDS: SPIRONOLACTONE 25 MG TAB PO SCH (09:55)
[2022-07-03] MEDS: METOPROLOL TARTRATE 50 MG TAB PO SCH ×2 (09:55→19:28)
[2022-07-03] MEDS ORDERED: PROPOFOL 10 MG/ML 20 ML VIAL IV ONE (10:42)
[2022-07-03] MEDS ORDERED: PHENYLEPHRINE-0.9% NACL SYG 1,000 MCG/10 ML SYRINGE ONE (10:42)
[2022-07-03] MEDS ORDERED: LIDOCAINE 2% INJ 20 MG/ML (2 ML VIAL) ONE (10:42)
--- NOTE | 2022-07-03 11:08 | P.TEE ---
Description of Procedure(s): Procedure performed: Transesophageal Echocardiogram with color flow doppler, pulsed wave doppler, synchronized cardioversion Moderate conscious sedation: Moderate conscious sedation was supplied by anesthesia Complications: none Indications: Afib PROCEDURE: After the risks, benefits and alternatives of the above mentioned pro cedure was explained in detail with the patient, informed consent was obtained. Patient was brought to the lab in a fasting state. Patient was given sedation by anesthesia. The throat was sprayed with Hurricane to anesthetize the throat. A lubricated Omni probe was then introduced into the esophagus and stomach and multiple views were obtained. 2D echo with color flow doppler, pulsed wave dop pler and continuous wave doppler was utilized. Patient became hypotensive and therefore limited images were obtained. The probe was then removed. Patient was synchronized cardioverted with 200J with resultant sinus rhythm. Patient tolerated the procedure well. FINDINGS: 1. The aortic valve is tricuspid and has mild central aortic insufficiency and mild aortic sclerosis. 2. The mitral valve appears be normal with moderate mitral regurgitation. 3. Tricuspid valve not imaged 4. The interatrial septum is intact. No bubble study was performed. 5. Left atrial appendage is free of clot. 6. Left ventricular size is normal with left ventricular ejection fraction 30-35% with predominantly anterior hypokinesis.
--- NOTE | 2022-07-03 11:55 | P.PN ---
Subjective Progress Note Date: 07/03/22 This is a 76-year-old white male with history of chronic atrial fibrillation, previous ablation and previous stent placement in 2011. Patient is also known to have history of hypertension, hypothyroidism, previous RI, patient had a recent positive stress test, this was done for exertional dyspnea. Underwent cardiac catheterization by Dr. ANIL Molina, patient had elective PCI of proximal LAD around 10:30 AM. Postoperatively, in p.m., patient developed chest pain and ST elevation in the anterior leads, patient was taken back emergently to the cardiac [employer], and he was found to have on the percent occlusion of the LAD, patient had another stent placement and admitted to the ICU after the stent dulce cement. In the ICU, the patient developed worsening shortness of breath required oxygen at 10 L/m chest x-ray clearly showed evidence of pulmonary edema. Patient was given diuretics overnight, significant improvement noted initially, but this morning his chest x-ray is showing worsening pulmonary edema again, and he is receiving more Lasix this morning. Patient clearly had LV dysfunction with ejection fraction of 25-30%. Very consistent with ischemic cardiomyopathy and LV dysfunction. In addition to this the patient was noted to have atrial fibrillation with RVR, and he will be started on amiodarone as per cardiology. Reevaluated today on 07/01/22, patient remains in the ICU, feeling much better today compared to the last few days. Patient diuresed almost 2.5 L. He is on 5 L nasal cannula instead of 10 L yesterday. Breathing easier, remains on amiodarone at 0.5 mg/m. Patient is hemodynamically stable, not in distress. Follow-up chest x-ray today showed improved aeration compared to his initial chest x-ray, obviously the patient's pulmonary edema is resolving. Patient remains on Lasix at 40 mg IV push every 12 hours. WBC count today is 20.2 hemoglobin is 14.8. Basic metabolic profile is relatively unremarkable, renal profile remains normal. Troponin was elevated at 79.2 and his BNP level yesterday was almost 7000 Reevaluated today on 07/02/22, patient remains in the ICU, continues to improve, his pulmonary status is better, nonetheless he continues to have intermittent episodes of atrial fibrillation with RVR being addressed by cardiology on the case. Chest x-ray showed significant improvement in his congestive heart failure, patient is developing minimal basilar atelectasis. Tiny pleural effusions noted. Nonetheless the chest x-ray is better compared to the chest x- ray yesterday and the day before. Patient is now on 2 L nasal cannula, and his O2 saturation is 95%. WBC count is 16.2 hemoglobin 15.2, sodium is a bit the low side 129 bicarb is normal renal profile is normal. The patient is seen today 07/03/2022 in follow-up in the intensive care unit. He is awake and alert in no acute distress. Resting fairly comfortably in bed. He is maintaining O2 saturations in the 90s now on 2 L nasal cannula. No IV fluids currently. Chest x-ray continues to show overall improvement with resolution of bibasilar airspace opacities. He remains in a -2.5 L balance. He's been afebrile. Hemodynamically stable. White count 13.9. Hemoglobin 14.8. Sodium 131. Potassium 3.8. ICaps 31. BUN 30. Creatinine 0.86. Glucose 118. He remains on bronchodilators, amiodarone, digoxin, anticoagulated with Eliquis. The plan is for TERESA/cardioversion this morning. Objective - Vital Signs Vital signs: Vital Signs Temp 97.5 F L 07/03/22 08:00 Pulse 112 H 07/03/22 10:00 Resp 7 L 07/03/22 10:00 BP 118/88 07/03/22 10:00 Pulse Ox 95 07/03/22 10:00 FiO2 Intake & Output 07/02/22 07/03/22 07/03/22 18:59 06:59 18:59 Intake Total 240 0 0 Output Total 1450 1275 200 Balance -1210 -1275 -200 Weight 95.8 kg Intake: IV 0 0 0 KVO 0 0 0 Oral 240 Output: Urine 1450 1275 200 Other: Voiding Method Urinal # Voids 1 ABP, PAP, CO, CI - Last Documented Arterial Blood Pressure 259/259 - Exam GENERAL EXAM: Alert, very pleasant 76-year-old male patient, on 2 L nasal cannula, comfortable in no apparent distress. HEAD: Normocephalic. EYES: Normal reaction of pupils, equal size. NOSE: Clear with pink turbinates. THROAT: No erythema or exudates. NECK: No masses, no JVD. CHEST: No chest wall deformity. LUNGS: Equal air entry with no crackles, wheeze, rhonchi or dullness. CVS: S1 and S2 normal with no audible murmur, irregular rhythm. ABDOMEN: No hepatosplenomegaly, normal bowel sounds, no guarding or rigidity. SPINE: No scoliosis or deformity SKIN: No rashes CENTRAL NERVOUS SYSTEM: No focal deficits, tone is normal in all 4 extremities. EXTREMITIES: There is no peripheral edema. No clubbing, no cyanosis. Peripheral pulses are intact. - Labs CBC & Chem 7: 07/03/22 03:30 07/03/22 03:30 Labs: Abnormal Lab Results - Last 24 Hours (Table) 07/03/22 07/03/22 Range/Units 03:30 03:30 WBC 13.9 H (3.8-10.6) k/uL Neutrophils # 10.4 H (1.3-7.7) k/uL Monocytes # 1.4 H (0-1.0) k/uL Sodium 131 L (137-145) mmol/L Chloride 88 L (98-107) mmol/L Carbon Dioxide 32 H (22-30) mmol/L BUN 30 H (9-20) mg/dL Glucose 118 H (74-99) mg/dL Assessment and Plan Assessment: Acute hypoxemic respiratory failure secondary to an acute exacerbation of systolic congestive heart failure/acute pulmonary edema, recovered on 2 L nasal cannula Ischemic cardiomyopathy and left impaired left ventricular systolic function with an ejection fraction 25-30% Acute coronary syndrome status post angioplasty and stenting of the proximal and mid LAD with 3 drug-eluting stents on 06/28/2022 Chronic persistent atrial fibrillation with previous cardioversions and ablation, anticoagulated with a request Hypertension Hyperlipidemia Hypothyroidism Plan: The patient was seen and evaluated Chest x-ray improved Currently on 2 L nasal cannula Plan is for TERESA/cardioversion today We'll continue to monitor closely We'll continue to follow and make further recommendations based on his clinical status I have personally seen and examined the patient, performed the documentation and the assessment and plan as written. Number of minutes spent on the visit: 10.
[2022-07-03] MEDS: MAGNESIUM OXIDE 400 MG TAB PO SCH (13:28)
[2022-07-03] MEDS: LOSARTAN 25 MG TAB PO SCH (21:00)
--- NOTE | 2022-07-03 23:22 | P.PN ---
Subjective Progress Note Date: 07/03/22 Patient is a 76-year-old male with a known history of persistent atrial fibrillation on anticoagulation with Coumadin and prior history of ablation, history of stent placement and 2012, hypertension, hyperlipidemia, history of HI, hypothyroidism and previous history of smoking initially was brought to the hospital for elective cardiac catheterization. Patient has been having exertional positive stress test with a fixed component. Patient underwent elective PCI of proximal LAD at around 10:30 AM. Patient developed chest pain with ST elevation in the anterior leads started around 2:30 PM and patient was emergently taken to cardiac catheterization and was found to have 100% occlusion of the LAD status post stent placement again. Patient was admitted to MICU for further monitoring. Patient is currently remains in atrial fibrillation with elevated heart rate around 115. Denies any complaints of chest pain. No shortness breath. Complains of dizziness and lightheaded. No cough or sputum production. No fever no chills. Laboratory test showed WBC 16.4 hemoglobin 14.6 and platelets 244 Sodium 133 potassium 5.6 chloride 100 bicarb is 20 BUN 2020 creatinine 0.9 and troponin 137 and 120 and 79. Echocardiogram showed concentric mild left ventricular hypertrophy with severe hypokinesia involving the anteroseptal and inferolateral apical portion of the left ventricle suggestive ischemic cardiomyopathy and may have significant myocardial stunning as well. Patient currently on room air saturating at 92%. 06/30/2021 Patient is in the MICU. No complaints of chest pain or shortness breath. Patient is having atrial fibrillation with rapid chloride with heart rate in 140s. Was started on amiodarone drip as per cardiology recommendations. Denies any complaints of chest pain or worsening shortness of breath. Chest x-ray showed bilateral pulmonary edema. Patient is was given IV Lasix. Chest x-ray this morning showed bilateral areas of patchy infiltrate correlate for pneumonia or atypical pneumonia. Pulmonary edema is also the differential diagnosis. Laboratory test showed WBC 19.5 hemoglobin 15.4 and platelets 149 Sodium 134 potassium 4.4 chloride 97 bicarb is 27 BUN 25 and creatinine 1.02 and blood sugar is 152 proBNP 6770. 07/01/2022 Patient is in the MICU. No complaints of chest pain or worsening shortness of breath. Patient is requiring oxygen at 3 L via nasal cannula. Afebrile. No nausea vomiting abdominal pain or diarrhea. No cough or sputum production. Patient is being continued on amiodarone changed to by mouth. Digoxin was added. Patient is also on Lasix 40 mg every 12 hourly. Chest x-ray today showed improved aeration on today's exam. Laboratory test showed WBC 20.2 hemoglobin 14.8 and platelets 159 Sodium 131 potassium 4.0 chloride 91 bicarb is 30 BUN 31 creatinine 1.04 and blood sugar is 142. 07/02/2022 Patient is in the MICU. L breathing status is much better and is being titrated down to room air. Chest x-ray showed improvement in congestive heart failure. No complaints of chest pain. No nausea vomiting abdominal pain or diarrhea. No cough or sputum production. WBC is trending down to 16.2 hemoglobin 15.1 platelets 200 Sodium 129 potassium 3.9 chloride 89 bicarb is 30 BUN 32 and creatinine 0.95 and blood sugar 118 and calcium 7.9 IV Lasix has been discontinued and blood pressure did improve. 07/03/2022 Patient is seen and evaluated in the ICU and cardiology along with pulmonary following. Patient is status post TERESA with cardioversion this morning. Patient ef approx 30-35% with no clot noted of the atrial appendage and no bubble study down with cardioversion of 200J to normal sinus. Patient is currently sinus on the monitor although with some ectopy noted and continued on 2L of 02 via NC. Patient is lethargic post the procedure although easily arousable. Patient reports to feeling fatigued. Sodium is slightly improved at 131 today and encouraged oral intake. Patient per nursing staff has been up and walking with steady gait. Will consider PT/OT evaluation given prolonged hospitalization. WBC trending down and is 13.9 today and patient is afebrile. Recommend repeat labs and continued telemetry. Patient is on oral eliquis. Review of systems: Constitutional: reports of fatigue, no fever, or chills Cardiovascular: No reports of chest pain or palpitations Respiratory: No reports of worsening shortness of breath or cough GI: No reports of nausea, vomiting, or diarrhea : No reports of dysuria or retention Neurovascular: No reports of weakness or numbness All medications have been reviewed Active Medications Albuterol/Ipratropium (Ipratropium-Albuterol 3 Ml Neb) 3 ml INHALATION RT-QID PRN PRN Reason: Shortness Of Breath Or Wheezing Last Admin: 06/29/22 20:38 Dose: 3 ml Allopurinol (Allopurinol 100 Mg Tab) 100 mg PO DAILY [facility] Last Admin: 07/03/22 09:54 Dose: 100 mg Alprazolam (Alprazolam 0.25 Mg Tab) 0.25 mg PO Q6HR PRN PRN Reason: Mild Anxiety Stop: 07/28/22 06:05 Alprazolam (Alprazolam 0.5 Mg Tab) 0.5 mg PO Q6HR PRN PRN Reason: Moderate Anxiety Stop: 07/28/22 06:05 Amiodarone HCl (Amiodarone 200 Mg Tab) 200 mg PO BID [facility] Last Admin: 07/03/22 09:54 Dose: 200 mg Apixaban (Apixaban 5 Mg Tab) 5 mg PO BID [facility]; Protocol Last Admin: 07/03/22 09:54 Dose: 5 mg Clopidogrel Bisulfate (Clopidogrel 75 Mg Tab) 75 mg PO DAILY [facility] Last Admin: 07/03/22 09:54 Dose: 75 mg Digoxin (Digoxin 125 Mcg Tab) 125 mcg PO DAILY [facility] Last Admin: 07/03/22 09:54 Dose: 125 mcg Hydromorphone HCl (Hydromorphone 0.5 Mg/0.5 Ml Syringe) 0.5 mg IVP Q3HR PRN PRN Reason: Pain Levothyroxine Sodium (Levothyroxine 25 Mcg Tab) 25 mcg PO DAILY@0630 [facility] Last Admin: 07/03/22 05:26 Dose: 25 mcg Losartan Potassium (Losartan 25 Mg Tab) 12.5 mg PO HS [facility] Last Admin: 07/02/22 20:37 Dose: 12.5 mg Magnesium Oxide (Magnesium Oxide 400 Mg Tab) 400 mg PO MOWEFR [facility] Last Admin: 07/03/22 13:28 Dose: 400 mg Metoprolol Tartrate (Metoprolol Tartrate 50 Mg Tab) 50 mg PO BID [facility] Last Admin: 07/03/22 09:55 Dose: 50 mg Nitroglycerin (Nitroglycerin Sl Tabs 0.4 Mg Tab) 0.4 mg SUBLINGUAL Q5M PRN PRN Reason: Chest Pain Stop: 07/28/22 06:05 Last Admin: 06/29/22 10:18 Dose: 0.4 mg Ondansetron HCl (Ondansetron 4 Mg/2 Ml Vial) 4 mg IVP Q6HR PRN PRN Reason: Nausea And Vomiting Last Admin: 06/30/22 22:11 Dose: 4 mg Spironolactone (Spironolactone 25 Mg Tab) 12.5 mg PO DAILY [facility] Last Admin: 07/03/22 09:55 Dose: 12.5 mg PHYSICAL EXAMINATION: Patient is lying in the bed sleeping although arousable, no acute distress, alert and oriented x3.. HEENT: Normocephalic. Neck is supple. Pupils reactive. Nostrils clear. Oral cavity is moist. Neck reveals no JVD, carotid bruits, or thyromegaly. CHEST EXAMINATION: Trachea is central. Symmetrical expansion. Bibasilar diminished sounds. No wheezing.. CARDIAC: Normal S1, S2 with no gallops. No murmurs. Irregularly irregular rhythm. ABDOMEN: Soft. Bowel sounds present. Nontender. No organomegaly. No abdominal bruits. Extremities: reveal no edema. No clubbing or cyanosis Neurologically awake, alert, oriented x3 with well-coordinated movements. No focal deficits noted Skin: No rash or skin lesions. Psychiatric: Cooperative. Non-suicidal, Musculoskeletal: No joint swelling or deformity. Normal range of motion. Assessment: Acute hypoxic respiratory failure secondary to acute CHF and pulmonary edema. on 2l now Periprocedural HI following abrupt reclosure after initially PCI of LAD and underwent subsequent PCI with additional stenting Post TERESA and cardioversion. Chronic persistent atrial fibrillation with RVR. History of cardiac catheterization and stent placement in 2004, 2005 and 2011 hyponatremia. Hypertension Hyperlipidemia History HI GERD Hypothyroidism GI and DVT prophylaxis. Patient is on apixaban. Full code Plan: Patient was on IV Lasix. DCed now. Also has been started on amiodarone. changed to by mouth, metoprolol and digoxin, cardiology following and continued on eliquis. Post TERESA with an ef of 30-35% with cardioversion with DR. Arreola this morning. Recommend to continue telemetry monitoring. Continue with Plavix and Eliquis and continue with metoprolol and other home medications. Monitor the patient in the MICU. Pulmonary following as well for hypoxia and continued on 2L Sodium is mildly improved at 131 today and encourage oral intake along with increased activity as tolerated Recommend repeat labs in the am. The impression and plan of care has been dictated by Alanis Moore, Nurse Practitioner as directed. Dr. Delmi MD I have performed a history and examination and MDM of this patient, discussed the same with the dictator, and agree with the dictator's assessment and plan as written ,documented as a scribe. Based on total visit time, I have performed more than 50% of the visit. Objective - Vital Signs Vital signs: Vital Signs Temp 98.5 F 07/03/22 12:00 Pulse 88 07/03/22 13:00 Resp 21 07/03/22 13:00 BP 112/80 07/03/22 13:00 Pulse Ox 99 07/03/22 13:00 FiO2 Intake & Output 07/02/22 07/03/22 07/03/22 18:59 06:59 18:59 Intake Total 240 0 0 Output Total 1450 1275 600 Balance -1210 -1275 -600 Weight 95.8 kg Intake: IV 0 0 0 KVO 0 0 0 Oral 240 Output: Urine 1450 1275 600 Other: Voiding Method Urinal # Voids 1 ABP, PAP, CO, CI - Last Documented Arterial Blood Pressure 259/259 - Labs CBC & Chem 7: 07/03/22 03:30 07/03/22 03:30 Labs: Abnormal Lab Results - Last 24 Hours (Table) 07/03/22 07/03/22 Range/Units 03:30 03:30 WBC 13.9 H (3.8-10.6) k/uL Neutrophils # 10.4 H (1.3-7.7) k/uL Monocytes # 1.4 H (0-1.0) k/uL Sodium 131 L (137-145) mmol/L Chloride 88 L (98-107) mmol/L Carbon Dioxide 32 H (22-30) mmol/L BUN 30 H (9-20) mg/dL Glucose 118 H (74-99) mg/dL
[2022-07-04 05:00] LABS: Basophils # (A) 0.1 k/uL (0-0.2); Basophils % (A) 0 %; Eosinophils # (A) 0.1 k/uL (0-0.7); Eosinophils % (A) 1 %; HCT 45.1 % (39.0-53.0); HGB 14.9 gm/dL (13.0-17.5); Lymphocytes # (A) 1.7 k/uL (1.0-4.8); Lymphocytes % (A) 12 %; MCH 31.4 pg (25.0-35.0); MCHC 33.2 g/dL (31.0-37.0); MCV 94.8 fL (80.0-100.0); Mean Platelet Volume 8.5; Monocytes # (A) 1.5 k/uL (0-1.0); Monocytes % (A) 10 %; Neutrophils # (A) 11.3 k/uL (1.3-7.7); Neutrophils % (A) 76 %; Platelet Count 224 k/uL (150-450); RBC 4.76 m/uL (4.30-5.90); RDW 13.9 % (11.5-15.5)
[2022-07-04 05:41] LABS: African American GFR (CKD) >90 (>60 ml/min/1.73 sqM); Anion Gap 9 mmol/L; Blood Urea Nitrogen 26 mg/dL (9-20); Carbon Dioxide 31 mmol/L (22-30); Chloride 89 mmol/L (98-107); Glucose 120 mg/dL (74-99); Non-African American GFR(CKD) 87 (>60 ml/min/1.73 sqM); Potassium 3.8 mmol/L (3.5-5.1); Sodium 129 mmol/L (137-145)
[2022-07-04] MEDS: LEVOTHYROXINE 25 MCG TAB PO SCH (06:19)
--- NOTE | 2022-07-04 07:35 | P.PN ---
Subjective Progress Note Date: 07/04/22 Principal diagnosis: Acute coronary syndrome The patient is a 76-year-old gentleman with CAD and status post angioplasty of the LAD in the setting of acute coronary syndrome as well as persistent atrial fibrillation. The patient was seen this morning. He underwent cardioversion yesterday. He has been maintaining normal sinus mechanism with infrequent PVCs. He is on anticoagulation and antiplatelet. He is not on any vasopressors. From a cardiovascular standpoint overview, he seems to be asymptomatic and stable and possible he can be discharged home in the next 12-24 hours. Objective - Vital Signs Vital signs: Vital Signs Temp 98.6 F 07/04/22 04:00 Pulse 90 07/04/22 06:00 Resp 11 L 07/04/22 06:00 BP 122/80 07/04/22 04:00 Pulse Ox 96 07/04/22 06:00 FiO2 Intake & Output 07/03/22 07/04/22 07/04/22 18:59 06:59 18:59 Intake Total 360 540 Output Total 800 575 Balance -440 -35 Weight 96.5 kg Intake: IV 0 0 KVO 0 0 Oral 360 540 Output: Urine 800 575 Other: # Voids 1 # Bowel Movements 1 ABP, PAP, CO, CI - Last Documented Arterial Blood Pressure 259/259 - Constitutional General appearance: Present: no acute distress - Respiratory Respiratory: bilateral: diminished - Cardiovascular Rhythm: regular - Labs CBC & Chem 7: 07/04/22 04:02 07/04/22 04:02 Labs: Abnormal Lab Results - Last 24 Hours (Table) 07/04/22 07/04/22 Range/Units 04:02 04:02 WBC 15.0 H (3.8-10.6) k/uL Neutrophils # 11.3 H (1.3-7.7) k/uL Monocytes # 1.5 H (0-1.0) k/uL Sodium 129 L (137-145) mmol/L Chloride 89 L (98-107) mmol/L Carbon Dioxide 31 H (22-30) mmol/L BUN 26 H (9-20) mg/dL Glucose 120 H (74-99) mg/dL Calcium 8.0 L (8.4-10.2) mg/dL Assessment and Plan Assessment: Assessment Coronary artery disease and status post PCI of the LAD Acute coronary syndrome Persistent atrial fibrillation status post cardioversion Multiple comorbid conditions Plan Continue the current medical regimen The patient can be discharged in the next 12-24 hour
[2022-07-04] MEDS: SPIRONOLACTONE 25 MG TAB PO SCH (08:38)
[2022-07-04] MEDS: APIXABAN 5 MG TAB PO SCH ×2 (08:38→20:17)
[2022-07-04] MEDS: allopurinoL 100 MG TAB PO SCH (08:38)
[2022-07-04] MEDS: METOPROLOL TARTRATE 50 MG TAB PO SCH ×2 (08:38→20:17)
[2022-07-04] MEDS: AMIODARONE 200 MG TAB PO SCH ×2 (08:38→20:16)
[2022-07-04] MEDS: CLOPIDOGREL 75 MG TAB PO SCH (08:38)
[2022-07-04] MEDS: DIGOXIN 125 MCG TAB PO SCH (08:38)
--- NOTE | 2022-07-04 10:48 | P.PN ---
Subjective Progress Note Date: 07/04/22 This is a 76-year-old white male with history of chronic atrial fibrillation, previous ablation and previous stent placement in 2011. Patient is also known to have history of hypertension, hypothyroidism, previous RI, patient had a recent positive stress test, this was done for exertional dyspnea. Underwent cardiac catheterization by Dr. ANIL Molina, patient had elective PCI of proximal LAD around 10:30 AM. Postoperatively, in p.m., patient developed chest pain and ST elevation in the anterior leads, patient was taken back emergently to the [facility], and he was found to have on the percent occlusion of the LAD, patient had another stent placement and admitted to the ICU after the stent dulce cement. In the ICU, the patient developed worsening shortness of breath required oxygen at 10 L/m chest x-ray clearly showed evidence of pulmonary edema. Patient was given diuretics overnight, significant improvement noted initially, but this morning his chest x-ray is showing worsening pulmonary edema again, and he is receiving more Lasix this morning. Patient clearly had LV dysfunction with ejection fraction of 25-30%. Very consistent with ischemic cardiomyopathy and LV dysfunction. In addition to this the patient was noted to have atrial fibrillation with RVR, and he will be started on amiodarone as per cardiology. Reevaluated today on 07/01/22, patient remains in the ICU, feeling much better today compared to the last few days. Patient diuresed almost 2.5 L. He is on 5 L nasal cannula instead of 10 L yesterday. Breathing easier, remains on amiodarone at 0.5 mg/m. Patient is hemodynamically stable, not in distress. Follow-up chest x-ray today showed improved aeration compared to his initial chest x-ray, obviously the patient's pulmonary edema is resolving. Patient remains on Lasix at 40 mg IV push every 12 hours. WBC count today is 20.2 hemoglobin is 14.8. Basic metabolic profile is relatively unremarkable, renal profile remains normal. Troponin was elevated at 79.2 and his BNP level yesterday was almost 7000 Reevaluated today on 07/02/22, patient remains in the ICU, continues to improve, his pulmonary status is better, nonetheless he continues to have intermittent episodes of atrial fibrillation with RVR being addressed by cardiology on the case. Chest x-ray showed significant improvement in his congestive heart failure, patient is developing minimal basilar atelectasis. Tiny pleural effusions noted. Nonetheless the chest x-ray is better compared to the chest x- ray yesterday and the day before. Patient is now on 2 L nasal cannula, and his O2 saturation is 95%. WBC count is 16.2 hemoglobin 15.2, sodium is a bit the low side 129 bicarb is normal renal profile is normal. The patient is seen today 07/03/2022 in follow-up in the intensive care unit. He is awake and alert in no acute distress. Resting fairly comfortably in bed. He is maintaining O2 saturations in the 90s now on 2 L nasal cannula. No IV fluids currently. Chest x-ray continues to show overall improvement with resolution of bibasilar airspace opacities. He remains in a -2.5 L balance. He's been afebrile. Hemodynamically stable. White count 13.9. Hemoglobin 14.8. Sodium 131. Potassium 3.8. ICaps 31. BUN 30. Creatinine 0.86. Glucose 118. He remains on bronchodilators, amiodarone, digoxin, anticoagulated with Eliquis. The plan is for TERESA/cardioversion this morning. The patient is seen today 07/04/2022 in follow-up in the intensive care unit. He is currently resting comfortably in bed. Awake and alert in no acute distress. Currently maintaining O2 saturations in the 90s on room air. No IV fluids. He did undergo successful cardioversion yesterday and is currently in sinus rhythm. He is having multifocal PVCs.. No dizziness or lightheadedness. He is continued on amiodarone, metoprolol, digoxin. Anticoagulated with Eliquis. Remains on bronchodilators as needed. White count 15.0. Hemoglobin 14.9. Sodium 129. Potassium 3.8. Bicarb 31. BUN 26. Creatinine 0.8. Objective - Vital Signs Vital signs: Vital Signs Temp 98.4 F 07/04/22 08:00 Pulse 90 07/04/22 08:00 Resp 21 07/04/22 08:00 BP 144/78 07/04/22 08:00 Pulse Ox 95 07/04/22 10:05 FiO2 Intake & Output 07/03/22 07/04/22 07/04/22 18:59 06:59 18:59 Intake Total 360 540 Output Total 800 575 0 Balance -440 -35 0 Weight 96.5 kg Intake: IV 0 0 KVO 0 0 Oral 360 540 Output: Urine 800 575 0 Other: # Voids 1 # Bowel Movements 1 ABP, PAP, CO, CI - Last Documented Arterial Blood Pressure 259/259 - Exam GENERAL EXAM: Alert, pleasant 76-year-old male patient, on room air, comfortable in no apparent distress. HEAD: Normocephalic. EYES: Normal reaction of pupils, equal size. NOSE: Clear with pink turbinates. THROAT: No erythema or exudates. NECK: No masses, no JVD. CHEST: No chest wall deformity. LUNGS: Equal air entry with no crackles, wheeze, rhonchi or dullness. CVS: S1 and S2 normal with no audible murmur, regular rhythm. ABDOMEN: No hepatosplenomegaly, normal bowel sounds, no guarding or rigidity. SPINE: No scoliosis or deformity SKIN: No rashes CENTRAL NERVOUS SYSTEM: No focal deficits, tone is normal in all 4 extremities. EXTREMITIES: There is no peripheral edema. No clubbing, no cyanosis. Peripheral pulses are intact. - Labs CBC & Chem 7: 07/04/22 04:02 07/04/22 04:02 Labs: Abnormal Lab Results - Last 24 Hours (Table) 07/04/22 07/04/22 Range/Units 04:02 04:02 WBC 15.0 H (3.8-10.6) k/uL Neutrophils # 11.3 H (1.3-7.7) k/uL Monocytes # 1.5 H (0-1.0) k/uL Sodium 129 L (137-145) mmol/L Chloride 89 L (98-107) mmol/L Carbon Dioxide 31 H (22-30) mmol/L BUN 26 H (9-20) mg/dL Glucose 120 H (74-99) mg/dL Calcium 8.0 L (8.4-10.2) mg/dL Assessment and Plan Assessment: Acute hypoxemic respiratory failure secondary to an acute exacerbation of systolic congestive heart failure/acute pulmonary edema, recovered on room air Ischemic cardiomyopathy and left impaired left ventricular systolic function with an ejection fraction 25-30% Acute coronary syndrome status post angioplasty and stenting of the proximal and mid LAD with 3 drug-eluting stents on 06/28/2022 Chronic persistent atrial fibrillation with previous cardioversions and ablation, anticoagulated with a request. Status post cardioversion 07/03/2022 currently in sinus rhythm Hypertension Hyperlipidemia Hypothyroidism Plan: The patient was seen and evaluated Medications and labs reviewed Currently stable and on room air He is a 3 S. overflow Home once cleared by cardiology I have personally seen and examined the patient, performed the documentation and the assessment and plan as written. Number of minutes spent on the visit: 10.
[2022-07-04 11:50] LABS: Magnesium 2.4 mg/dL (1.6-2.3)
--- NOTE | 2022-07-04 14:49 | XR ---
EXAMINATION TYPE: XR abdomen acute w cxr DATE OF EXAM: 07/04/2022 CLINICAL HISTORY: Shortness of breath along with abdominal pain and bloating TECHNIQUE: Single frontal view of chest is obtained. Supine and upright views of the abdomen are acq uired. COMPARISON: Chest x-ray one day earlier. FINDINGS: Some increased central markings bilaterally. Cardiac silhouette size appears stable and wi thin normal limits. Multilevel spurring in thoracic spine redemonstrated. Gas is noted in nondistended stomach and small bowel loops. Gas and fecal material is seen in nondis tended colon. No pneumoperitoneum, visceromegaly, or suspicious calcification is identified. Slight scoliotic curvature with multilevel spurring in the thoracolumbar spine. IMPRESSION: 1. There are new mild central increased opacity suggesting mild edema. Correlate clinically. 2. Overall nonobstructive bowel gas pattern.
[2022-07-04] MEDS: LOSARTAN 25 MG TAB PO SCH (20:17)
[2022-07-04] MEDS ORDERED: ATORVASTATIN 40 MG TAB PO SCH (21:00)
--- NOTE | 2022-07-05 02:48 | P.PN ---
Subjective Progress Note Date: 07/04/22 Patient is a 76-year-old male with a known history of persistent atrial fibrillation on anticoagulation with Coumadin and prior history of ablation, history of stent placement and 2012, hypertension, hyperlipidemia, history of VT, hypothyroidism and previous history of smoking initially was brought to the hospital for elective cardiac catheterization. Patient has been having exertional positive stress test with a fixed component. Patient underwent elective PCI of proximal LAD at around 10:30 AM. Patient developed chest pain with ST elevation in the anterior leads started around 2:30 PM and patient was emergently taken to cardiac catheterization and was found to have 100% occlusion of the LAD status post stent placement again. Patient was admitted to MICU for further monitoring. Patient is currently remains in atrial fibrillation with elevated heart rate around 115. Denies any complaints of chest pain. No shortness breath. Complains of dizziness and lightheaded. No cough or sputum production. No fever no chills. Laboratory test showed WBC 16.4 hemoglobin 14.6 and platelets 244 Sodium 133 potassium 5.6 chloride 100 bicarb is 20 BUN 2020 creatinine 0.9 and troponin 137 and 120 and 79. Echocardiogram showed concentric mild left ventricular hypertrophy with severe hypokinesia involving the anteroseptal and inferolateral apical portion of the left ventricle suggestive ischemic cardiomyopathy and may have significant myocardial stunning as well. Patient currently on room air saturating at 92%. 06/30/2021 Patient is in the MICU. No complaints of chest pain or shortness breath. Patient is having atrial fibrillation with rapid chloride with heart rate in 140s. Was started on amiodarone drip as per cardiology recommendations. Denies any complaints of chest pain or worsening shortness of breath. Chest x-ray showed bilateral pulmonary edema. Patient is was given IV Lasix. Chest x-ray this morning showed bilateral areas of patchy infiltrate correlate for pneumonia or atypical pneumonia. Pulmonary edema is also the differential diagnosis. Laboratory test showed WBC 19.5 hemoglobin 15.4 and platelets 149 Sodium 134 potassium 4.4 chloride 97 bicarb is 27 BUN 25 and creatinine 1.02 and blood sugar is 152 proBNP 6770. 07/01/2022 Patient is in the MICU. No complaints of chest pain or worsening shortness of breath. Patient is requiring oxygen at 3 L via nasal cannula. Afebrile. No nausea vomiting abdominal pain or diarrhea. No cough or sputum production. Patient is being continued on amiodarone changed to by mouth. Digoxin was added. Patient is also on Lasix 40 mg every 12 hourly. Chest x-ray today showed improved aeration on today's exam. Laboratory test showed WBC 20.2 hemoglobin 14.8 and platelets 159 Sodium 131 potassium 4.0 chloride 91 bicarb is 30 BUN 31 creatinine 1.04 and blood sugar is 142. 07/02/2022 Patient is in the MICU. L breathing status is much better and is being titrated down to room air. Chest x-ray showed improvement in congestive heart failure. No complaints of chest pain. No nausea vomiting abdominal pain or diarrhea. No cough or sputum production. WBC is trending down to 16.2 hemoglobin 15.1 platelets 200 Sodium 129 potassium 3.9 chloride 89 bicarb is 30 BUN 32 and creatinine 0.95 and blood sugar 118 and calcium 7.9 IV Lasix has been discontinued and blood pressure did improve. 07/03/2022 Patient is seen and evaluated in the ICU and cardiology along with pulmonary following. Patient is status post TERESA with cardioversion this morning. Patient ef approx 30-35% with no clot noted of the atrial appendage and no bubble study down with cardioversion of 200J to normal sinus. Patient is currently sinus on the monitor although with some ectopy noted and continued on 2L of 02 via NC. Patient is lethargic post the procedure although easily arousable. Patient reports to feeling fatigued. Sodium is slightly improved at 131 today and encouraged oral intake. Patient per nursing staff has been up and walking with steady gait. Will consider PT/OT evaluation given prolonged hospitalization. WBC trending down and is 13.9 today and patient is afebrile. Recommend repeat labs and continued telemetry. Patient is on oral eliquis. 07/04/2022 Patient is seen today in the ICU as a 3 south hold and is on front end software developer ing. Per nursing staff patient is having some multifocal PVCs with cardiology following closely. Pulmonary following as well and patient continues to have shortness of breath and is on 2L via NC. Patient oral intake is fair and encouraged oral intake. Sodium is 129. Patient reports to some increased bloating and gas along with occasional cough and will order cxr with abdomen. Patient reports to passing gas and had a bowel movement yesterday. Denies abdominal pain. Patient is voiding as well. Will obtain a bladder scan. Patient is weak and has not been up out of bed much and encouraged increased activity. Will have PT/OT evaluate as well as social work for possible ecf and arrange for home 02. Patient is afebrile and denies chest pain, just reports exhausted and run down. Patient is post cardioversion yesterday. Review of systems: Constitutional: reports of fatigue, no fever, or chills Cardiovascular: No reports of chest pain or palpitations Respiratory: No reports of worsening shortness of breath although gets winded easily with minimal activity GI: No reports of nausea, vomiting, or diarrhea : No reports of dysuria or retention Neurovascular: reports of generalized weakness All medications have been reviewed PHYSICAL EXAMINATION: Patient is lying in the bed , no acute distress, alert and oriented x3.. HEENT: Normocephalic. Neck is supple. Pupils reactive. Nostrils clear. Oral cavity is moist. Neck reveals no JVD, carotid bruits, or thyromegaly. CHEST EXAMINATION: Trachea is central. Symmetrical expansion. Bibasilar diminished sounds. No wheezing.. CARDIAC: Normal S1, S2 with no gallops. No murmurs. Irregularly irregular rhythm. ABDOMEN: Soft. Bowel sounds present. Nontender. No organomegaly. No abdominal bruits. Extremities: reveal no edema. No clubbing or cyanosis Neurologically awake, alert, oriented x3 with well-coordinated movements. No f ocal deficits noted Skin: No rash or skin lesions. Psychiatric: Cooperative. Non-suicidal, Musculoskeletal: No joint swelling or deformity. Normal range of motion. Assessment: Acute hypoxic respiratory failure secondary to acute CHF and pulmonary edema. on 2l now Periprocedural VT following abrupt reclosure after initially PCI of LAD and underwent subsequent PCI with additional stenting Post TERESA and cardioversion. Chronic persistent atrial fibrillation with RVR. currently rate controlled History of cardiac catheterization and stent placement in 2004, 2005 and 2011 hyponatremia. Hypertension Hyperlipidemia History VT GERD Hypothyroidism GI and DVT prophylaxis. Patient is on apixaban. Full code Plan: Patient being followed by cardiology and pulmonary. Patient continues on 2L and is dyspneic with minimal exertion and will assess for possible home 02 Cardiology following and continued on eliquis, metoprolol, amiodarone and digoxin. Post TERESA with an ef of 25-30% with cardioversion with DR. Arreola yesterday. Having some multifocal PVCs on the monitor. Recommend to continue telemetry monitoring. Patient is in the ICU as a 3 south overflow. Pulmonary following as well for hypoxia and continued on 2L. May require home 02 on discharge to manage CHF Sodium is 129 today and encouraged oral intake along with increased activity as tolerated. Patient is weak and exerts easily. Will consult PT/OT as well as social work to assess for possible ecf. Patient reports he does live alone, but plans to go stay with son and family on discharge until feeling better. Possible discharge in 24-48 hours. The impression and plan of care has been dictated by Alanis Moore, Nurse Practitioner as directed. Dr. Luke MD I have performed a history and examination and MDM of this patient, discussed the same with the dictator, and agree with the dictator's assessment and plan as written ,documented as a scribe. Based on total visit time, I have performed more than 50% of the visit. Objective - Vital Signs Vital signs: Vital Signs Temp 97.7 F 07/05/22 00:00 Pulse 88 07/05/22 00:00 Resp 18 07/05/22 02:00 BP 93/68 07/05/22 00:00 Pulse Ox 94 L 07/04/22 16:00 FiO2 Intake & Output 07/04/22 07/04/22 07/05/22 06:59 18:59 06:59 Intake Total 540 Output Total 575 325 250 Balance -35 -325 -250 Weight 96.5 kg Intake: IV 0 KVO 0 Oral 540 Output: Urine 575 325 250 Other: Voiding Method Urinal # Voids 1 1 # Bowel Movements 1 1 ABP, PAP, CO, CI - Last Documented Arterial Blood Pressure 259/259 - Labs CBC & Chem 7: 07/04/22 04:02 07/04/22 04:02 Labs: Abnormal Lab Results - Last 24 Hours (Table) 07/04/22 07/04/22 07/04/22 Range/Units 04:02 04:02 04:02 WBC 15.0 H (3.8-10.6) k/uL Neutrophils # 11.3 H (1.3-7.7) k/uL Monocytes # 1.5 H (0-1.0) k/uL Sodium 129 L (137-145) mmol/L Chloride 89 L (98-107) mmol/L Carbon Dioxide 31 H (22-30) mmol/L BUN 26 H (9-20) mg/dL Glucose 120 H (74-99) mg/dL Calcium 8.0 L (8.4-10.2) mg/dL Magnesium 2.4 H (1.6-2.3) mg/dL
[2022-07-05] MEDS: LEVOTHYROXINE 25 MCG TAB PO SCH (05:47)
--- NOTE | 2022-07-05 07:03 | P.PN ---
Subjective Progress Note Date: 07/05/22 Principal diagnosis: Acute coronary syndrome The patient is a 76-year-old gentleman with CAD and status post angioplasty of the LAD in the setting of acute coronary syndrome as well as persistent atrial fibrillation. The patient was seen this morning. He has been maintaining normal sinus mechanism. Currently he is on triple therapy. The pressure has been marginal but systolic pressure above 90 mmHg. He denies any symptoms of chest pain or chest discomfort or shortness of breath. Overall and from a cardiovascular standpoint of view, the patient is a stable and potentially can be discharged in the next 12-24 hours Objective - Vital Signs Vital signs: Vital Signs Temp 98.9 F 07/05/22 04:00 Pulse 84 07/05/22 05:00 Resp 16 07/05/22 04:00 BP 102/68 07/05/22 04:00 Pulse Ox 98 07/05/22 04:00 FiO2 Intake & Output 07/04/22 07/05/22 07/05/22 18:59 06:59 18:59 Output Total 325 500 Balance -325 -500 Weight 96.3 kg Output: Urine 325 500 Other: Voiding Method Urinal # Voids 1 # Bowel Movements 1 ABP, PAP, CO, CI - Last Documented Arterial Blood Pressure 259/259 - Constitutional General appearance: Present: no acute distress - Respiratory Respiratory: bilateral: diminished - Cardiovascular Rhythm: regular Heart sounds: normal: S1, S2 - Labs CBC & Chem 7: 07/04/22 04:02 07/04/22 04:02 Labs: Abnormal Lab Results - Last 24 Hours (Table) 07/04/22 Range/Units 04:02 Magnesium 2.4 H (1.6-2.3) mg/dL Assessment and Plan Assessment: Assessment Coronary artery disease and status post PCI of the LAD Acute coronary syndrome Persistent atrial fibrillation status post cardioversion Multiple comorbid conditions Plan Continue the current medical regimen The patient can be discharged in the next 12-24 hour
[2022-07-05] MEDS: METOPROLOL TARTRATE 50 MG TAB PO SCH (09:23)
[2022-07-05] MEDS: CLOPIDOGREL 75 MG TAB PO SCH (09:24)
[2022-07-05] MEDS: DIGOXIN 125 MCG TAB PO SCH (09:24)
[2022-07-05] MEDS: AMIODARONE 200 MG TAB PO SCH (09:24)
[2022-07-05] MEDS: APIXABAN 5 MG TAB PO SCH (09:24)
[2022-07-05] MEDS: allopurinoL 100 MG TAB PO SCH (09:24)
[2022-07-05] MEDS: SPIRONOLACTONE 25 MG TAB PO SCH (09:24)
--- NOTE | 2022-07-05 10:57 | P.PN ---
Subjective Progress Note Date: 07/05/22 This is a 76-year-old white male with history of chronic atrial fibrillation, previous ablation and previous stent placement in 2011. Patient is also known to have history of hypertension, hypothyroidism, previous AL, patient had a recent positive stress test, this was done for exertional dyspnea. Underwent cardiac catheterization by Dr. ANIL Molina, patient had elective PCI of proximal LAD around 10:30 AM. Postoperatively, in p.m., patient developed chest pain and ST elevation in the anterior leads, patient was taken back emergently to the cardiac Application Processor, and he was found to have on the percent occlusion of the LAD, patient had another stent placement and admitted to the ICU after the stent dulce cement. In the ICU, the patient developed worsening shortness of breath required oxygen at 10 L/m chest x-ray clearly showed evidence of pulmonary edema. Patient was given diuretics overnight, significant improvement noted initially, but this morning his chest x-ray is showing worsening pulmonary edema again, and he is receiving more Lasix this morning. Patient clearly had LV dysfunction with ejection fraction of 25-30%. Very consistent with ischemic cardiomyopathy and LV dysfunction. In addition to this the patient was noted to have atrial fibrillation with RVR, and he will be started on amiodarone as per cardiology. Reevaluated today on 07/01/22, patient remains in the ICU, feeling much better today compared to the last few days. Patient diuresed almost 2.5 L. He is on 5 L nasal cannula instead of 10 L yesterday. Breathing easier, remains on amiodarone at 0.5 mg/m. Patient is hemodynamically stable, not in distress. Follow-up chest x-ray today showed improved aeration compared to his initial chest x-ray, obviously the patient's pulmonary edema is resolving. Patient remains on Lasix at 40 mg IV push every 12 hours. WBC count today is 20.2 hemoglobin is 14.8. Basic metabolic profile is relatively unremarkable, renal profile remains normal. Troponin was elevated at 79.2 and his BNP level yesterday was almost 7000 Reevaluated today on 07/02/22, patient remains in the ICU, continues to improve, his pulmonary status is better, nonetheless he continues to have intermittent episodes of atrial fibrillation with RVR being addressed by cardiology on the case. Chest x-ray showed significant improvement in his congestive heart failure, patient is developing minimal basilar atelectasis. Tiny pleural effusions noted. Nonetheless the chest x-ray is better compared to the chest x- ray yesterday and the day before. Patient is now on 2 L nasal cannula, and his O2 saturation is 95%. WBC count is 16.2 hemoglobin 15.2, sodium is a bit the low side 129 bicarb is normal renal profile is normal. The patient is seen today 07/03/2022 in follow-up in the intensive care unit. He is awake and alert in no acute distress. Resting fairly comfortably in bed. He is maintaining O2 saturations in the 90s now on 2 L nasal cannula. No IV fluids currently. Chest x-ray continues to show overall improvement with resolution of bibasilar airspace opacities. He remains in a -2.5 L balance. He's been afebrile. Hemodynamically stable. White count 13.9. Hemoglobin 14.8. Sodium 131. Potassium 3.8. ICaps 31. BUN 30. Creatinine 0.86. Glucose 118. He remains on bronchodilators, amiodarone, digoxin, anticoagulated with Eliquis. The plan is for TERESA/cardioversion this morning. The patient is seen today 07/04/2022 in follow-up in the intensive care unit. He is currently resting comfortably in bed. Awake and alert in no acute distress. Currently maintaining O2 saturations in the 90s on room air. No IV fluids. He did undergo successful cardioversion yesterday and is currently in sinus rhythm. He is having multifocal PVCs.. No dizziness or lightheadedness. He is continued on amiodarone, metoprolol, digoxin. Anticoagulated with Eliquis. Remains on bronchodilators as needed. White count 15.0. Hemoglobin 14.9. Sodium 129. Potassium 3.8. Bicarb 31. BUN 26. Creatinine 0.8. The patient is seen today 07/05/2022 in follow-up in the intensive care unit. He is a 3 S. overflow. He is on room air. He has no IV fluids running. He has not had any further chest discomfort shortness of breath or palpitations. He is remaining in sinus rhythm. He is afebrile. Hemodynamically stable. No new labs today. He is continued on amiodarone, metoprolol, digoxin. Anticoagulated with Eliquis. Remains on bronchodilators as needed. Objective - Vital Signs Vital signs: Vital Signs Temp 97.4 F L 07/05/22 08:00 Pulse 97 07/05/22 08:00 Resp 19 07/05/22 08:00 BP 123/70 07/05/22 08:00 Pulse Ox 92 L 07/05/22 08:00 FiO2 Intake & Output 07/04/22 07/05/22 07/05/22 18:59 06:59 18:59 Output Total 325 500 Balance -325 -500 Weight 96.3 kg Output: Urine 325 500 Other: Voiding Method Urinal # Voids 1 # Bowel Movements 1 ABP, PAP, CO, CI - Last Documented Arterial Blood Pressure 259/259 - Exam GENERAL EXAM: Alert, pleasant 76-year-old male patient, on room air, comfortable in no apparent distress. HEAD: Normocephalic. EYES: Normal reaction of pupils, equal size. NOSE: Clear with pink turbinates. THROAT: No erythema or exudates. NECK: No masses, no JVD. CHEST: No chest wall deformity. LUNGS: Equal air entry with no crackles, wheeze, rhonchi or dullness. CVS: S1 and S2 normal with no audible murmur, regular rhythm. ABDOMEN: No hepatosplenomegaly, normal bowel sounds, no guarding or rigidity. SPINE: No scoliosis or deformity SKIN: No rashes CENTRAL NERVOUS SYSTEM: No focal deficits, tone is normal in all 4 extremities. EXTREMITIES: There is no peripheral edema. No clubbing, no cyanosis. Peripheral pulses are intact. - Labs CBC & Chem 7: 07/04/22 04:02 07/04/22 04:02 Labs: Abnormal Lab Results - Last 24 Hours (Table) 07/04/22 Range/Units 04:02 Magnesium 2.4 H (1.6-2.3) mg/dL Assessment and Plan Assessment: Acute hypoxemic respiratory failure secondary to an acute exacerbation of systolic congestive heart failure/acute pulmonary edema, recovered on room air Ischemic cardiomyopathy and left impaired left ventricular systolic function with an ejection fraction 25-30% Acute coronary syndrome status post angioplasty and stenting of the proximal and mid LAD with 3 drug-eluting stents on 06/28/2022 Chronic persistent atrial fibrillation with previous cardioversions and ablation, anticoagulated with Eliquis. Status post cardioversion 07/03/2022 currently in sinus rhythm Hypertension Hyperlipidemia Hypothyroidism Plan: The patient was seen and evaluated Currently stable and on room air Home once cleared by cardiology I have personally seen and examined the patient, performed the documentation and the assessment and plan as written. Number of minutes spent on the visit: 10.
[2022-07-05 13:09] VITALS: BP 98/66; PULSE 85; RESP 17; TEMP 98.1
[2022-07-05 13:50] VITALS: BMI 32.3
[2022-07-05] MEDS: MAGNESIUM OXIDE 400 MG TAB PO SCH (14:51)
--- NOTE | 2022-07-05 14:54 | P.DS ---
Providers Date of admission: 06/28/22 14:23 Expected date of discharge: 07/05/22 Attending physician: Magda Curtis Consults: 06/29/22 10:31 Consult Physician Routine Consulting Provider: Ashely Molina Consult Reason/Comments: nstemi Do you want consulting provider notified?: Already Contacted 06/29/22 12:17 Consult Physician Routine Consulting Provider: Magda Curtis Consult Reason/Comments: s/p PCI in-stent occlusion Do you want consulting provider notified?: Yes 06/30/22 08:16 Consult Physician Routine Consulting Provider: Amaris Mack Consult Reason/Comments: increased shortness of breath Do you want consulting provider notified?: Already Contacted Primary care physician: Rafael Ross Hospital Course: Final diagnosis Acute hypoxic respiratory failure secondary to acute CHF and pulmonary edema. on 2l now Periprocedural MO following abrupt reclosure after initially PCI of LAD and underwent subsequent PCI with additional stenting Post TERESA and cardioversion. Chronic persistent atrial fibrillation with RVR. currently rate controlled History of cardiac catheterization and stent placement in 2004, 2005 and 2011 hyponatremia. Hypertension Hyperlipidemia History MO GERD Hypothyroidism GI and DVT prophylaxis. Patient is on apixaban. Full code Discharge disposition Patient is being discharged in a stable condition with guarded prognosis to home with home care. Patient will follow-up with Dr. Rafael Ross in the outpatient setting upon discharge. Patient is to follow-up closely with cardiology Dr. Molina at scheduled appointment and continue with current medication regimen as prescribed. Recommend repeat labs in the next few days to monitor CBC and CMP. Total time taken is greater than 35 minutes. Hospital course This is a 76-year-old male who was recently admitted with significant past medical history including persistent atrial fibrillation and brought to the hospital for elective cardiac catheterization after having a positive stress test. Patient underwent elective PCI to the proximal LAD and developed increasing chest pain with ST elevation and brought back to the cardiac catheterization lab found to have 100% occlusion of the LAD post stent placement and was restented. Patient was continued in the ICU under close monitoring and continue telemetry monitoring and underwent a TERESA with cardioversion. Cardiology following and patient will continue on current medication regimen as mentioned below and close outpatient follow-up with Dr. Molina in the outpatient setting as scheduled next week. Agent with prolonged hospitalization and significant weakness was evaluated by physical therapy recommending home with home care and patient normally lives alone although has made arrangement to go stay with son and [id number] who also has a grandson that can help care for him. Patient will require a walker to assist with ADLs due to continued weakness. Patient continues with some intermittent shortness of breath although maintaining oxygen saturation above 91% on room air with exertion. Patient's most recent EF 25-30% with overall extreme guarded prognosis. Patient has been cleared for discharge from cardiology with close outpatient follow-up with a scheduled appointment already with Dr. Molina. Patient with some hyponatremia most likely secondary to poor oral intake and encouraged intake including proteins and also close outpatient follow-up with primary care provider on discharge. Currently no reports of chest pain, worsening shortness of breath, or palpitations. Patient is afebrile. No reports of nausea or vomiting and patient is tolerating diet. Patient will be discharged home today with home care. Guarded prognosis. Physical exam: Gen: This is a 76-year-old male awake, alert and oriented 3, well-developed, well-nourished. HEENT: Head is atraumatic, normocephalic. Pupils equal, round. Sclerae is anicteric. NECK: Supple. No JVD. No lymphadenopathy. No thyromegaly. LUNGS: Diminished breath sounds bilaterally otherwise clear to auscultation with no wheezes or rhonchi. No intercostal retractions. HEART: Regular rate and rhythm. No murmur. ABDOMEN: Soft. Bowel sounds are present. No masses. No tenderness. EXTREMITIES: No pedal edema. No calf tenderness. NEUROLOGICAL: Patient is awake, alert and oriented x3. Cranial nerves 2 through 12 are grossly intact. Please refer to medication reconciliation sheet for a list of medications. The impression and plan of care has been dictated by Alanis Moore, Nurse Practitioner as directed. Dr. Luke MD I have performed a history and examination and MDM of this patient, discussed the same with the dictator, and agree with the dictator's assessment and plan as written ,documented as a scribe. Based on total visit time, I have performed more than 50% of the visit. Patient Condition at Discharge: Stable Plan - Discharge Summary Discharge Rx Participant: No New Discharge Prescriptions: New Amiodarone [Cordarone] 200 mg PO BID 30 Days #60 tab Atorvastatin [Lipitor] 40 mg PO HS 30 Days #30 tab Metoprolol Tartrate [Lopressor] 50 mg PO BID 30 Days #60 tab Magnesium Oxide [Mag-Ox] 400 mg PO MOWEFR #15 tab Nitroglycerin Sl Tabs [Nitrostat] 0.4 mg SUBLINGUAL Q5M PRN #30 tab PRN Reason: Chest Pain Apixaban [Eliquis] 5 mg PO BID #60 tab Spironolactone [Aldactone] 12.5 mg PO DAILY 30 Days #15 tab Losartan [Cozaar] 12.5 mg PO HS 30 Days #15 tab Clopidogrel [Plavix] 75 mg PO DAILY 30 Days #30 tab Continue Levothyroxine Sodium [Synthroid] 25 mcg PO DAILY allopurinoL [Allopurinol] 100 mg PO DAILY Digoxin [Lanoxin] 125 mcg PO DAILY Meloxicam [Mobic] 7.5 mg PO BID PRN PRN Reason: Pain Aspirin 81 mg PO DAILY 30 Days #30 tab Discontinued Spironolactone 25 mg PO DAILY Warfarin Sodium [Coumadin] 5 mg PO DIRECTED Magnesium 250 mg PO WE Metoprolol Tartrate [Lopressor] 100 mg PO DAILY Metoprolol Tartrate [Lopressor] 50 mg PO HS Rosuvastatin Calcium [Crestor] 5 mg PO HS Discharge Medication List Digoxin [Lanoxin] 125 mcg PO DAILY 12/18/14 [History] Levothyroxine Sodium [Synthroid] 25 mcg PO DAILY 12/18/14 [History] allopurinoL [Allopurinol] 100 mg PO DAILY 12/18/14 [History] Meloxicam [Mobic] 7.5 mg PO BID PRN 06/28/22 [History] Amiodarone [Cordarone] 200 mg PO BID 30 Days #60 tab 07/05/22 [Rx] Apixaban [Eliquis] 5 mg PO BID #60 tab 07/05/22 [Rx] Aspirin 81 mg PO DAILY 30 Days #30 tab 07/05/22 [Rx] Atorvastatin [Lipitor] 40 mg PO HS 30 Days #30 tab 07/05/22 [Rx] Clopidogrel [Plavix] 75 mg PO DAILY 30 Days #30 tab 07/05/22 [Rx] Losartan [Cozaar] 12.5 mg PO HS 30 Days #15 tab 07/05/22 [Rx] Magnesium Oxide [Mag-Ox] 400 mg PO MOWEFR #15 tab 07/05/22 [Rx] Metoprolol Tartrate [Lopressor] 50 mg PO BID 30 Days #60 tab 07/05/22 [Rx] Nitroglycerin Sl Tabs [Nitrostat] 0.4 mg SUBLINGUAL Q5M PRN #30 tab 07/05/22 [Rx] Spironolactone [Aldactone] 12.5 mg PO DAILY 30 Days #15 tab 07/05/22 [Rx] Follow up Appointment(s)/Referral(s): Ashely Molina MD [STAFF PHYSICIAN] - 07/13/22 4:00 pm [facility], [NON-STAFF] - ([facility] will call you to arrange a visit) Rafael Ross MD [Primary Care Provider] - 3 Days (patient stated he will contact office and make own appointment) Ambulatory/Diagnostic Orders: Complete Blood Count w/diff [LAB.AMB] Time Frame: 3 Days, Location: [facility] Patient Instructions/Handouts: *Surgery [facility] - After Heart Catheterization - Radar Technician Instructions Activity/Diet/Wound Care/Special Instructions: Activity is limited until follow-up Follow-up with primary care provider on discharge Follow-up with cardiology outpatient Continue taking medications as prescribed Continue heart healthy diet Note all of the recent changes to medications Encouraged oral intake Recommend repeat labs in 2-3 days Discharge Disposition: HOME WITH HOME HEALTH SERVICES
== END 2022-07-05 15:30 | disposition home health service (06) | DRG 246 ==
LOC: CATHCVL 08:34 → 3SCARD 12:10 → CATHCVL 14:23 → 2SICU 14:23
PROVIDERS: ADMIT Hospitalist; ATTEND Hospitalist
PROC: B2111ZZ Fluoroscopy of Multiple Coronary Arteries using Low Osmolar Contrast (ICD-10-PCS; principal; 2022-06-28 10:30)
PROC: 027036Z Dilation of Coronary Artery, One Artery with Three Drug-eluting Intraluminal Devices, Percutaneous Approach (ICD-10-PCS; principal; 2022-06-28 10:30)
PROC: 027034Z Dilation of Coronary Artery, One Artery with Drug-eluting Intraluminal Device, Percutaneous Approach (ICD-10-PCS; 2022-06-28 10:30)
PROC: B246ZZ4 Ultrasonography of Right and Left Heart, Transesophageal (ICD-10-PCS; 2022-07-03)
DX: I97.190 Other postprocedural cardiac functional disturbances following cardiac surgery (principal); I21.A9 Other myocardial infarction type; J96.01 Acute respiratory failure with hypoxia; I25.42 Coronary artery dissection; I50.23 Acute on chronic systolic (congestive) heart failure; T82.867A Thrombosis due to cardiac prosthetic devices, implants and grafts, initial encounter; I48.19 Other persistent atrial fibrillation; I25.110 Atherosclerotic heart disease of native coronary artery with unstable angina pectoris; E87.1 Hypo-osmolality and hyponatremia; I95.9 Hypotension, unspecified; I11.0 Hypertensive heart disease with heart failure; I77.819 Aortic ectasia, unspecified site; I25.84 Coronary atherosclerosis due to calcified coronary lesion; I25.5 Ischemic cardiomyopathy; E78.00 Pure hypercholesterolemia, unspecified; E03.9 Hypothyroidism, unspecified; I49.3 Ventricular premature depolarization; D72.829 Elevated white blood cell count, unspecified; E78.5 Hyperlipidemia, unspecified; H91.90 Unspecified hearing loss, unspecified ear; K21.9 Gastro-esophageal reflux disease without esophagitis; K57.90 Diverticulosis of intestine, part unspecified, without perforation or abscess without bleeding; L40.9 Psoriasis, unspecified; M19.90 Unspecified osteoarthritis, unspecified site; I25.2 Old myocardial infarction; M1A.9XX0 Chronic gout, unspecified, without tophus (tophi); Z79.82 Long term (current) use of aspirin; Z79.890 Hormone replacement therapy; Z79.01 Long term (current) use of anticoagulants; Z79.899 Other long term (current) drug therapy; Z87.891 Personal history of nicotine dependence; Z87.11 Personal history of peptic ulcer disease; Z95.5 Presence of coronary angioplasty implant and graft; Z60.2 Problems related to living alone; Z88.1 Allergy status to other antibiotic agents; Y84.0 Cardiac catheterization as the cause of abnormal reaction of the patient, or of later complication, without mention of misadventure at the time of the procedure; Y92.234 Operating room of hospital as the place of occurrence of the external cause; Z82.49 Family history of ischemic heart disease and other diseases of the circulatory system
CPT/HCPCS: 36600; 71045; 74022; 80048; 82805; 83735; 83880; 84100; 84132; 84484; 85025; 85610; 92960; 93306; 93312; 93320; 93325; 93454